=== PATIENT | female | born 1955 | race Caucasian/White ===

== ENCOUNTER → 2020-03-27 07:29 | Outpatient (CLI) | payer MEDICARE, SELFPAY ==
--- NOTE | ~2020-03-27 | MR_ITS ---
EXAMINATION: MR lumbar spine wo con EXAM DATE: 03/27/2020 08:34 INDICATION: Chronic low back pain, right-sided worse. TECHNIQUE: Multi-sequential, multiplanar MR images of the lumbar spine were obtained without contrast . Sagittal T1, T2, T2 fat saturation images. Axial T2 weighted images. Comparison is made to prior examination from 03/03/2018. FINDINGS: There is moderate to severe disc disease L2-3, L3-4 and L5-S1, mild to moderate at L1-2 and L4-5. Interval development of mild compression fractures at the L3-4 endplates, and the left, concav e side of patient's moderate dextroscoliosis. Given the edema, these appear to be acute or subacute. There is 3 mm retrolisthesis L2 on L3, 2 mm retrolisthesis L3 on L4. The conus medullaris terminates at the T12-L1 level and has normal signal intensity and morphology. There is horizontally oriented p artially imaged left kidney. There are 2 fluid signal intensity splenic regions, larger measuring 1.8 cm most likely benign given suspect presence of fluid. Level by level evaluation: T11-12: There is moderate-sized central disc protrusion with both cephalad and inferior migration. Facet arthropathy: Mild. Neural foraminal stenosis: No stenosis. Central canal stenosis: Mild to moderate. T12-L1: There is a mild diffuse disc bulge. Superimposed tiny central protrusion. Facet arthropathy: Mild. Neural foraminal stenosis: No stenosis. Central canal stenosis: No stenosis. L1-L2: There is a mild to moderate diffuse disc bulge. Facet arthropathy: Mild. Neural foraminal stenosis: Minimal left. Central canal stenosis: Minimal. L2-L3: There is a mild to moderate diffuse disc bulge, asymmetric to the left Facet arthropathy: Mild. Neural foraminal stenosis: Mild to moderate left, minimal right. Central canal stenosis: Mild. L3-L4: There is a moderate diffuse disc bulge. Facet arthropathy: Mild to moderate. Neural foraminal stenosis: Moderate left, mild to moderate right. Central canal stenosis: Mild to moderate. L4-L5: There is a mild diffuse disc bulge asymmetric to the right. Facet arthropathy: Mild. Neural foraminal stenosis: Moderate to severe right. Central canal stenosis: Mild. L5-S1: There is a mild to moderate diffuse disc bulge. Facet arthropathy: Mild. Neural foraminal stenosis: Moderate to severe right, moderate left. Central canal stenosis: Mild. Compared to 2018, the L3-4 compression fractures are new, and there has been progression in the disc disease particularly at this level. IMPRESSION: 1. Moderate lumbar dextroscoliosis with mild L3-4 compression fractures along the concave left side of these endplates that could be acute or subacute given edema. 2. Multilevel advanced lumbar spondylosis as detailed above. Reviewed, dictated and finalized at location A.
== END ==
PROVIDERS: PCP Internal Medicine; Visit Provider Nurse Practitioner Family
DX: M54.5 Low back pain (principal); M48.56XA Collapsed vertebra, not elsewhere classified, lumbar region, initial encounter for fracture; M41.9 Scoliosis, unspecified; M47.816 Spondylosis without myelopathy or radiculopathy, lumbar region
CPT/HCPCS: 72148

== ENCOUNTER 2020-06-16 01:29 | Outpatient (CLI) | payer MEDICARE, SELFPAY ==
[2020-06-16 18:31] LABS: SARS-CoV-2 RNA PCR Negative
== END 2020-06-16 01:30 | disposition home or self-care (01) ==
LOC: ANHCOVIDDT 01:29
PROVIDERS: PCP Internal Medicine; Visit Provider Internal Medicine Gastroenterology
DX: Z01.812 Encounter for preprocedural laboratory examination (principal); Z20.828 Contact with and (suspected) exposure to other viral communicable diseases
CPT/HCPCS: 87635; C9803; U0003

== ENCOUNTER 2020-06-19 00:36 | Day surgery (SDC) | payer MEDICARE, SELFPAY ==
[2020-06-19 10:23] VITALS: BP 132/67; PULSE 76; RESP 18; TEMP 36.8; O2SAT 98
[2020-06-19] MEDS: LACTATED RINGERS 1,000 ML 150 ML IV CONT (10:35)
--- NOTE | 2020-06-19 10:41 | WPDANESEPPF ---
Anes - Initial Pre Proc Eval Procedure: Operation Date: 06/19/20 11:30 Proposed Procedures p Esophagogastroduodenoscopy - Mukund Stovall MD Date/Time: 06/19/20 10:41 Surgeon: Mukund Stovall MD Pre Op Diagnosis: GERD, Dysphagia Patient Data Age: 64 Gender: F Height: Weight: 71 kg Last Vital Signs Temp 98.2 F 06/19/20 10:23 Pulse 76 06/19/20 10:23 Resp 18 06/19/20 10:23 BP 132/67 06/19/20 10:23 Pulse Ox 98 06/19/20 10:23 Allergies Allergy/AdvReac Type Severity Reaction Status Date / Time No Known Allergies Allergy Verified 06/19/20 10:07 Home Medications Medication Instructions Recorded Confirmed Type buspirone 10 mg PO DAILY 07/08/19 06/08/20 History ergocalciferol (vitamin D2) 1,250 mcg PO WEEKLY 07/08/19 06/08/20 History gabapentin 600 mg PO BID 07/08/19 06/08/20 History hydrocodone-acetaminophen 1 tablet PO BID PRN 07/08/19 06/08/20 History meloxicam 15 mg PO DAILY 07/08/19 06/08/20 History metoprolol succinate 100 mg PO DAILY 07/08/19 06/08/20 History omeprazole 40 mg PO DAILY 07/08/19 06/08/20 History amlodipine 10 mg PO DAILY 06/08/20 06/08/20 History Patient hx anesthesia problems: none Family hx anesthesia problems: none [facility] Past Medical History Medical History (Updated 05/21/20 @ 13:04 by Mukund Stovall MD) Anxiety Family history of colon cancer GERD (gastroesophageal reflux disease) HTN (hypertension) Odynophagia Overweight Social History Social History Smoking status: Former smoker Tobacco type: cigarettes Alcohol intake: current Substance use: never Substance use type: unknown Living arrangements: with family Anes - Eval Final PreProcedure Day of Procedure 06/19/20 10:41 Patient weight: overweight Heart: regular rate and rhythm Lungs: clear to auscultation Airway: Mallampati scale class II Neurological: alert and oriented Last oral intake: >/= 8 hours ASA classification: III Emergent: no Anesthetic plan: proceed Anesthesia type and monitoring: general GIVS and standard monitoring Informed Consent: The patient's anesthetic plan and its attendant risks and benefits were discussed with the patient/family/POA. Questions were solicited and answers provided to the satisfaction of the patient/family/POA.
[2020-06-19 11:21] VITALS: BP 113/47; PULSE 72; RESP 14; O2SAT 99
[2020-06-19 11:30] VITALS: BP 115/50; PULSE 67; RESP 16; O2SAT 99
[2020-06-19 11:41] VITALS: BP 124/64; PULSE 69; RESP 15; O2SAT 99
--- NOTE | 2020-06-19 12:12 | WPDHPUPDATE1 ---
History and Physical Update Update Date/Time: 06/19/20 12:12 History and Physical has been reviewed, including an updated exam of the patient. There are NO changes in the patient's condition. Risks, benefits, and alternatives have been discussed and questions answered. Patient agrees to proceed with procedure.
--- NOTE | 2020-06-19 12:52 | PM.PROC ---
Procedure Note - Detailed Date of procedure: 06/19/20 Pre-op diagnosis: GERD, Dysphagia Surgeon: Mukund Stovall MD Indications: GERD (K21.9) Description of Procedure: Informed consent was obtained with the risks, benefits, and alternatives to GI endoscopy and sedation explained, including but not limited to: infection, bleeding, aspiration, perforation, adverse medication reaction, missed diagnosis, and missed lesions. The patient verbalized understanding and signed the informed consent form to proceed with the GI endoscopy and sedation.No contraindications were noted on physical exam.Patient re-examined and no interval changes noted from preoperative history and physical. After the patient was rolled into the procedure room, two methods of identification were used to identify the patient and the procedure to be performed prior to the procedure. Immediately prior to sedation for endoscopy, the patient's ASA Classification was Class III: severe systemic disease, but not incapacitating. Anesthesia was administered by anesthesia service. The patient was placed in the left lateral decubitus position.The instrument was inserted into the mouth and then advanced to the second part of the duodenum.The patient tolerated the procedure well.The oxygen saturation and skin color were normal. Upon discharge from the endoscopy suite, the patient will be recovered per established procedures and protocols. Findings: normal esophagus but obtained random biopsies of lower esophagus to assess for nerd, eoe, etc. No esophagitis, no strictures. Z-line at 38 cm from incisors. Normal stomach, no obvious gastritis, no erosions. Random biopsies of stomach obtained. Normal duodenum. Recommendations unremarkable EGD but pending biopsies ok to resume meds and diet follow-up office as needed
== END 2020-06-19 11:55 | disposition home or self-care (01) ==
PROVIDERS: PCP Internal Medicine; Visit Provider Internal Medicine Gastroenterology
PROC: 0DJ08ZZ Inspection of Upper Intestinal Tract, Via Natural or Artificial Opening Endoscopic (ICD-10-PCS; CPT 43235; principal; 2020-06-19 11:30)
DX: K21.00 Gastro-esophageal reflux disease with esophagitis, without bleeding (principal); R13.10 Dysphagia, unspecified; K29.50 Unspecified chronic gastritis without bleeding; B96.81 Helicobacter pylori [H. pylori] as the cause of diseases classified elsewhere; I10 Essential (primary) hypertension; F41.9 Anxiety disorder, unspecified; Z80.0 Family history of malignant neoplasm of digestive organs; Z87.891 Personal history of nicotine dependence
CPT/HCPCS: 43239; 88305; 88342; J2001; J2704; J7120

== ENCOUNTER → 2020-06-25 10:02 | Outpatient (CLI) | payer MEDICARE, SELFPAY ==
--- NOTE | ~2020-06-25 | XR_ITS ---
EXAMINATION: SCOLIOSIS DATE: 06/25/2020 11:15 INDICATION: Bilateral leg pain TECHNIQUE: Standing AP and lateral views of the thoracolumbar spine FINDINGS: There are 12 rib bearing thoracic vertebral bodies and 5 non-rib bearing lumbar type verteb ral bodies. There is no listhesis, compression deformity or vertebral body anomaly. There are 26 deg itz of thoracic levocurvature measured from T6 through T11. There are 28 degrees of thoracolumbar de xtrocurvature measured from T12 through L4. There is mild spondylosis of the midthoracic spine. Mild cervical spondylosis is also noted. There is severe lumbar spondylosis. IMPRESSION: 1. Thoracic and thoracolumbar scoliosis as detailed above. 2. No vertebral body anomalies. Reviewed, dictated and finalized at location A. TY BOND AGENT
--- NOTE | ~2020-06-25 | XR_ITS ---
XR lumbar spine 2-3V DATE: 06/25/2020 11:16 INDICATION: Bilateral leg pain TECHNIQUE: Flexion and extension lateral views of the lumbar spine COMPARISON: AP and lateral standing views of the lumbar spine on 06/25/2020 FINDINGS: Prominent rotatory dextroscoliosis of the lower thoracic and lumbar spine as demonstrated o n the standing AP view of 06/25/2020. There is severe degenerative disc disease throughout the lumbar and lumbosacral spine. There is diffuse osteopenia otherwise. No spondylolisthesis or instability is evident on flexion or extension. IMPRESSION: Prominent rotatory dextroscoliosis and severe degenerative disc disease; no instability o n flexion or extension is evident Reviewed, dictated and finalized at location A. TROPLATER APPRENTICE IMPRESSION: Prominent rotatory dextroscoliosis and severe degenerative disc dis ease; no instability on flexion or extension is evident
== END ==
PROVIDERS: Visit Provider Neurological Surgery
DX: M79.604 Pain in right leg (principal); M79.605 Pain in left leg; M47.815 Spondylosis without myelopathy or radiculopathy, thoracolumbar region
CPT/HCPCS: 72082; 72100

== ENCOUNTER 2020-07-18 10:01 | Outpatient (CLI) | payer MEDICARE, SELFPAY ==
--- NOTE | ~2020-07-18 | DEXA_ITS ---
Bone Density Report Name: Keiko Noonan Age: 64 Sex: Female Ethnicity: White Date of : 1955 Indication: postmenopausal; height loss; hysterectomy; Referring Provider: GELACIO NAIR Study: Bone densitometry was performed. Exam Date: July 18, 2020 Accession number: [id number] Bone Density: Region BMD T-score Z-score Classification AP Spine (L1, L2) 0.849 -1.2 0.6 Osteopenia Femoral Neck (Left) 0.641 -1.9 -0.3 Osteopenia Total Hip (Left) 0.781 -1.3 0.0 Osteopenia Total Hip Bilateral Avg 0.763 -1.5 -0.2 Osteopenia Femoral Neck (Right) 0.627 -2.0 -0.4 Osteopenia Total Hip (Right) 0.744 -1.6 -0.3 Osteopenia World Health Organization criteria for BMD impression classify patients as: Normal (T-score at or above -1.0), Osteopenia (T-score between -1.0 and -2.5), or Osteoporosis (T-score at or below -2.5). 10-year Fracture Risk(1): Major Osteoporotic Fracture 11% Hip Fracture 1.6% Reported Risk Factors: [place] (), Neck BMD=0.627, BMI=28.2 (1) FRAX(R) Version 3.08. Fracture probability calculated for an untreated patient. Fracture probability may be lower if the patient has received treatment. Clinical Information Provided by Patient: Has used the following medications: Vitamin D Has the following medical conditions: Hysterectomy Patient maximum height was 64 Menopause Age: 48 Drinks caffeinated beverages Onset of menses at age 9 Number of children 3 Impression: The patient has low bone mass, based on the Right Femoral Neck T-score. The patient has an estimated ten-year risk of hip fracture of 1.6% and an estimated ten-year risk of major fracture of 11%, based on the WHO FRAX algorithm. Discussion: BONE DENSITY IS LOW AT ONE OR MORE SKELETAL SITES. This patient's lowest T-score is low at one or more skeletal sites. It meets the World Health Organization's (WHO) criteria for ?low bone mass? (T-score between -1.0 and -2.5). The patient's 10-year risk of fracture as calculated by FRAX is less than the threshold where pharmacological therapy is recommended by the National Osteoporosis Foundation (NOF). However, all treatment decisions require clinical judgment and consideration of individual patient factors, including patient preferences, comorbidities, previous drug use, risk factors not captured in the FRAX model (e.g., frailty, falls, vitamin D deficiency, increased bone turnover, interval significant decline in bone density) and possible under or overestimation of fracture risk by FRAX. The patient should follow a healthful lifestyle (good nutrition with adequate calcium and vitamin D, and appropriate weight-bearing exercise). Follow-Up: Consider repeating this study in 2 to 3 years to reassess this patient's status, or sooner if there is some new clinical indication. Reported
== END 2020-07-18 10:02 | disposition home or self-care (01) ==
LOC: ANHIMG 10:02
PROVIDERS: Visit Provider Obstetrics & Gynecology Gynecology
DX: Z78.0 Asymptomatic menopausal state (principal); M85.89 Other specified disorders of bone density and structure, multiple sites
CPT/HCPCS: 77080

== ENCOUNTER 2020-11-06 10:06 | Outpatient (CLI) | payer MEDICARE, SELFPAY ==
[2020-11-09 04:46] LABS: H pylori Ag Stool Detected (Not Detected)
== END 2020-11-06 10:07 | disposition home or self-care (01) ==
PROVIDERS: PCP Internal Medicine; Visit Provider Nurse Practitioner Family
DX: A04.8 Other specified bacterial intestinal infections (principal)
CPT/HCPCS: 87338

== ENCOUNTER 2021-01-22 11:19 | Outpatient (CLI) | payer MEDICARE, SELFPAY | END 2021-01-22 11:20 | disposition home or self-care (01) | PROVIDERS: PCP Internal Medicine; Visit Provider Nurse Practitioner Family | DX: A04.8 Other specified bacterial intestinal infections (principal) | CPT/HCPCS: 87338 ==

== ENCOUNTER 2021-01-29 11:17 | Outpatient (CLI) | payer MEDICARE, SELFPAY ==
[2021-02-02 22:23] LABS: H pylori Ag Stool Not Detected (Not Detected)
== END 2021-01-29 11:18 | disposition home or self-care (01) ==
LOC: ANHLAB 11:21
PROVIDERS: PCP Internal Medicine; Visit Provider Nurse Practitioner Family
DX: B99.8 Other infectious disease (principal)
CPT/HCPCS: 87338

== ENCOUNTER 2021-08-27 00:43 | Day surgery (SDC) | payer MEDICARE, SELFPAY ==
[2021-07-22 14:41] VITALS: BMI 27.3
[2021-08-20 15:02] VITALS: BMI 27.3
[2021-08-27 06:40] VITALS: BP 121/69; PULSE 113; RESP 18; TEMP 36.6; O2SAT 99
[2021-08-27] MEDS: LACTATED RINGERS 1,000 ML 150 ML IV CONT (07:10)
--- NOTE | 2021-08-27 07:30 | PM.HPGS ---
History of Present Illness History of Present Illness Consent: Risks, benefits, and alternatives have been discussed and questions answered. Patient agrees to proceed with procedure. Chief complaint: family hx of colon ca, incontinence of feces Narrative: Keiko Noonan is a 66 year old female with family history of colon cancer in father and grandfather. Last colonoscopy 2019. Review of Systems Constitutional: Constitutional: Denies headache(s) and Denies weakness Eyes: Eyes: Denies blurry vision ENT: Reports Normal hearing present, Denies headache(s) and Denies neck pain Cardiovascular: Cardiovascular: Denies chest pain and Denies dyspnea Respiratory: Respiratory: Denies dyspnea Gastrointestinal: Gastrointestinal: Reports no additional gastrointestinal complaints Genitourinary: Genitourinary: Denies dysuria Musculoskeletal: Musculoskeletal: Denies neck pain Integumentary/Breasts: Skin/Breast: Denies dry skin Neurologic: Reports Normal hearing present, Denies headache(s) and Denies weakness Psychiatric: Psychiatric: Denies anxiety Endocrine: Endocrine: Denies change in body appearance Hematologic/Lymphatic: Hematologic/Lymphatic: Denies easy bleeding Allergic/Immunologic: Allergic/Immunologic: Denies urticaria PMFSH Past Medical History Medical History Anxiety GERD (gastroesophageal reflux disease) Helicobacter pylori infection HTN (hypertension) Incontinence of feces Odynophagia Overweight Social History Social History Smoking status: Never smoker Tobacco type: cigarettes Alcohol intake: never Substance use: never Substance use type: does not use Living arrangements: with family Spiritual care concerns: No Meds Home Medications and Allergies Home Medications Medication Instructions Recorded Confirmed Type buspirone 10 mg PO DAILY 07/08/19 08/27/21 History ergocalciferol (vitamin D2) 1,250 mcg PO WEEKLY 07/08/19 08/27/21 History gabapentin 600 mg PO BID 07/08/19 08/27/21 History metoprolol succinate 100 mg PO DAILY 07/08/19 08/27/21 History omeprazole 40 mg PO DAILY 07/08/19 08/27/21 History amlodipine 10 mg PO DAILY 06/08/20 08/27/21 History Allergies Allergy/AdvReac Type Severity Reaction Status Date / Time No Known Allergies Allergy Verified 07/22/21 14:38 Vital Signs Vital Signs - 24 hr 08/27/21 06:40 Temperature 98 F Pulse Rate 113 H Respiratory Rate 18 Blood Pressure 121/69 Pulse Oximetry 99 Exam Const: General: comfortable and no acute distress HENMT: General nose exam: Normal nares present Eyes: General: appearance normal, both eyes and all related structures Neck: Neck: no JVD Resp: Auscultation: clear to auscultation bilaterally Cardio: Rate: regular rate Rhythm: regular rhythm GI: Inspection: non-distended GI Palp: Yes Soft to palpation Skin: General skin exam: normal color Neuro: General: gait normal Speech: normal speech Extrem: General: normal to inspection Psych: Mental Status: mental status grossly normal Assessment and Plan Assessment and plan (1) Family history of colon cancer: Code(s): Z80.0 - Family history of malignant neoplasm of digestive organs Status: Acute Assessment and Plan: colonoscopy
--- NOTE | 2021-08-27 07:43 | WPDANESEPPF ---
Anes - Initial Pre Proc Eval Procedure: Operation Date: 08/27/21 08:00 Proposed Procedures p Colonoscopy - Mukund Stovall MD Date/Time: 08/27/21 07:43 Surgeon: Mukund Stovall MD Pre Op Diagnosis: family hx of colon ca, incontinence of feces Patient Data Age: 66 Gender: F Height: 1.57 m Weight: 67 kg Last Vital Signs Temp 98 F 08/27/21 06:40 Pulse 113 H 08/27/21 06:40 Resp 18 08/27/21 06:40 BP 121/69 08/27/21 06:40 Pulse Ox 99 08/27/21 06:40 Allergies Allergy/AdvReac Type Severity Reaction Status Date / Time No Known Allergies Allergy Verified 07/22/21 14:38 Home Medications Medication Instructions Recorded Confirmed Type buspirone 10 mg PO DAILY 07/08/19 08/27/21 History ergocalciferol (vitamin D2) 1,250 mcg PO WEEKLY 07/08/19 08/27/21 History gabapentin 600 mg PO BID 07/08/19 08/27/21 History metoprolol succinate 100 mg PO DAILY 07/08/19 08/27/21 History omeprazole 40 mg PO DAILY 07/08/19 08/27/21 History amlodipine 10 mg PO DAILY 06/08/20 08/27/21 History Patient hx anesthesia problems: none Family hx anesthesia problems: none Results Review: All pre-operative results and documents have been reviewed as part of the pre-operative evaluation. [facility] Past Medical History Medical History Anxiety GERD (gastroesophageal reflux disease) Helicobacter pylori infection HTN (hypertension) Incontinence of feces Odynophagia Overweight Social History Social History Smoking status: Never smoker Tobacco type: cigarettes Alcohol intake: never Substance use: never Substance use type: does not use Living arrangements: with family Spiritual care concerns: No Anes - Eval Final PreProcedure Day of Procedure 08/27/21 07:43 Patient weight: overweight Heart: regular rate and rhythm Lungs: clear to auscultation Airway: Mallampati scale class II Neurological: alert and oriented Last oral intake: >/= 8 hours ASA classification: II Emergent: no Anesthetic plan: proceed Anesthesia type and monitoring: general GIVS and standard monitoring Results Review: All pre-operative results and documents have been reviewed as part of the pre-operative evaluation. Informed Consent: The patient's anesthetic plan and its attendant risks and benefits were discussed with the patient/family/POA. Questions were solicited and answers provided to the satisfaction of the patient/family/POA.
[2021-08-27 07:51] VITALS: BP 92/52; PULSE 73; RESP 21; O2SAT 98
[2021-08-27 08:01] VITALS: BP 102/58; PULSE 75; RESP 25; O2SAT 100
[2021-08-27 08:11] VITALS: BP 112/71; PULSE 71; RESP 18; O2SAT 100
== END 2021-08-27 08:25 | disposition home or self-care (01) ==
PROVIDERS: PCP Internal Medicine; Visit Provider Internal Medicine Gastroenterology
PROC: 0DJD8ZZ Inspection of Lower Intestinal Tract, Via Natural or Artificial Opening Endoscopic (ICD-10-PCS; CPT 45378; principal; 2021-08-27 08:00)
DX: Z12.11 Encounter for screening for malignant neoplasm of colon (principal); Z80.0 Family history of malignant neoplasm of digestive organs; D12.2 Benign neoplasm of ascending colon; K63.5 Polyp of colon; D12.3 Benign neoplasm of transverse colon; R15.9 Full incontinence of feces; F41.9 Anxiety disorder, unspecified; K21.9 Gastro-esophageal reflux disease without esophagitis; A04.8 Other specified bacterial intestinal infections; I10 Essential (primary) hypertension
CPT/HCPCS: 45385; 88305; J2704; J7120

== ENCOUNTER → 2022-07-02 15:11 | Outpatient (CLI) | payer MEDICARE, SELFPAY ==
--- NOTE | ~2022-07-02 | CT_ITS ---
CT Abdomen and Pelvis with contrast. History: Abdominal pain. Spiral CT of the abdomen and pelvis was performed after the administration of intravenous contrast. 1 00 cc of Omnipaque 350 was administered intravenously without complication. Dose reduction technique was used on this scan by utilizing automated exposure control and iterative reconstruction technique. The dose-length product (DLP) was 479.62 mGy-cm. Findings: Scans through the lung bases demonstrate densely calcified lingular nodule. There is additi onal probable chronic scarring or atelectasis in the lingula. Minimal pericardial fluid noted. The liver, pancreas, gallbladder, adrenals and kidneys are within normal limits. Calcified splenic gr anulomas are present, as well as probable splenic cysts. No evidence of aortic aneurysm. No lymphade nopathy is seen. There is no evidence of bowel obstruction. There is no evidence to suggest acute appendicitis or dive rticulitis. Images through the pelvis were performed. Urinary bladder unremarkable. No pelvic mass seen. Patient is status post hysterectomy. No ascites is seen. Impression: No etiology for acute abdominal pain. Minimal pericardial fluid. Chronic findings of the lingula. Reviewed, dictated and finalized at location [] TURE MACHINE TENDER Impression: No etiology for acute abdominal pain. Minimal pericardial fluid. Chronic findings of the lingula.
[2022-07-02 15:31] LABS: Estimated Glomerular Filt Rate 49
== END ==
PROVIDERS: PCP Internal Medicine; Visit Provider Internal Medicine
DX: R10.9 Unspecified abdominal pain (principal)
CPT/HCPCS: 74177; Q9967

== ENCOUNTER → 2022-08-29 09:39 | Outpatient (CLI) | payer MEDICARE, SELFPAY ==
--- NOTE | ~2022-08-29 | DEXA_ITS ---
Bone Density Report Name: ISATU MCKNIGHT Age: 67 Sex: Female Ethnicity: White Date of : 1955 Indication: postmenopausal; screening for osteoporosis; parental hip fracture; height loss; hysterectomy; Referring Provider: GELACIO NAIR Study: Bone densitometry was performed. Exam Date: August 29, 2022 Accession number: [id number] There is hypertrophic degenerative change of the lumbar spine, which results in higher than expected spine bone mineral density measurements. These spine BMD and T score and Z score measurements are not reflective of the patient's true general bone mineral density. Bone Density: Region BMD T-score Z-score Classification AP Spine (L1, L2) 0.865 -1.0 0.9 Normal Femoral Neck (Left) 0.629 -2.0 -0.2 Osteopenia Total Hip (Left) 0.773 -1.4 0.1 Osteopenia Femoral Neck (Right) 0.647 -1.8 -0.1 Osteopenia Total Hip (Right) 0.768 -1.4 0.0 Osteopenia Total Hip Mean 0.771 -1.4 0.1 Osteopenia World Health Organization criteria for BMD impression classify patients as: Normal (T-score at or above -1.0), Osteopenia (T-score between -1.0 and -2.5), or Osteoporosis (T-score at or below -2.5). 10-year Fracture Risk: FRAX not reported because: Treated for osteoporosis Clinical Information Provided by Patient: Parent has had a hip fracture Is being treated for osteoporosis Has used the following medications: Fosamax (i.e. alendronate), Vitamin D Has the following medical conditions: Hysterectomy Patient maximum height was 64.5 Menopause Age: 35 No regular weight bearing exercise Drinks caffeinated beverages Onset of menses at age 9 Number of children 3 Impression: The patient has low bone mass, based on the Left Femoral Neck T-score. The patient has risk factors, including: parental hip fracture. There is hypertrophic degenerative change of the lumbar spine, which results in higher than expected spine bone mineral density measurements. These spine BMD and T score and Z score measurements are not reflective of the patient's true general bone mineral density. Discussion: It is important to ask patients whether they are taking their medications and to encourage continued and appropriate compliance with their osteoporosis therapies to reduce fracture risk. It is also important to review their risk factors and encourage appropriate calcium and vitamin D intakes, exercise, fall prevention and other lifestyle measures. Follow-Up: Consider a repeat BMD and Vertebral Fracture Assessment (VFA) exam in 2 years or sooner if medically necessary, to reassess this patient's status. Reported by: DIRK on 08/29/2022 10:18:00 AM. Reviewed, dictated and finalized at location AOsavldo [place]
== END ==
PROVIDERS: PCP Internal Medicine; Visit Provider Obstetrics & Gynecology Gynecology
DX: Z78.0 Asymptomatic menopausal state (principal); M85.89 Other specified disorders of bone density and structure, multiple sites
CPT/HCPCS: 77080

== ENCOUNTER 2023-04-01 13:29 | Outpatient (CLI) | payer MEDICARE, SELFPAY ==
--- NOTE | ~2023-04-01 | MR_ITS ---
MR breast BI wo/w con 04/03/2023 08:52 CDT INDICATION: Extremely dense breasts TECHNIQUE: MRI of the breasts perform using standard protocol pre-and post IV contrast with the follo wing sequences: Axial T2 STIR, axial T1, axial vibrant T1 with fat suppression precontrast and multip hasic postcontrast. COMPARISON: Outside mammogram dated 12/21/2017 FINDINGS: There are no abnormalities on the precontrast sequences. There is moderate background paren chymal enhancement. No enhancing lesions following contrast administration. No areas of enhancement meeting threshold criteria on CAD analysis. No evidence of signal abnormalities in the axillary or internal mammary node distributions. LEFT BREAST: No signal abnormalities on precontrast sequences. There is moderate background parenchy mal enhancement. No enhancing lesions following contrast administration. No areas of enhancement m eeting threshold criteria on CAD analysis. No evidence of signal abnormalities in the axillary or i nternal mammary node distributions.] IMPRESSION: 1: Right breast: Negative. No evidence of malignancy. 2: Left breast: Negative. No evidence of malignancy. Recommend follow-up screening bilateral mammogram. BI-RADS CATEGORY 0 - INCOMPLETE STUDY, NEED ADDITIONAL IMAGING EVALUATION. Reviewed, dictated and finalized at location B.
== END 2023-04-01 13:30 | disposition home or self-care (01) ==
PROVIDERS: PCP Internal Medicine; Visit Provider Obstetrics & Gynecology Gynecology
DX: R92.2 Inconclusive mammogram (principal)
CPT/HCPCS: 77049; A9577; C8908

== ENCOUNTER 2023-05-07 09:30 | Outpatient (RCR) | payer MEDICARE, SELFPAY ==
--- NOTE | 2023-02-25 11:41 | OPREHPOC ---
Outpatient Therapy Plan of Care This is a Multidisciplinary Plan of Care that may contain components documented by all disciplines (PT, OT, and ST.) PT Problem 1 PT Problem #1 Knowledge Deficit PT Goal 1 Goal 1. Patient will perform independent HEP Target Visit 5 PT Goal 2 Goal 2. Patient will verbalize understanding of appropriate fluid and fiber intake Target Visit 5 PT Problem 2 PT Problem #2 Impaired Functional ADLs PT Goal 1 Goal 1. Patient will report no more than 1 instance of fecal incontinence in a 2 week span to improve ability to go out in the community Target Visit 5 PT Problem 3 PT Problem #3 Impaired Strength PT Goal 1 Goal 1. Improve pelvic floor strength to 3/5 to decrease incontinence Target Visit 5 PT Goal 2 Goal 2. Improve endurance to 10 seconds to decrease incontinence Target Visit 5
--- NOTE | 2023-02-25 11:41 | PTOPEVAL1 ---
Assessment and note entered by Brook Espinoza DPEdis Evaluation Information Assessment Status Evaluation Subjective Information Pt reports fecal incontinence, does not always realize it's happening. Reports difficulty with certain foods, like salads, will give her diarrhea . The volume of incontinence varies. Has been happening for over a year. Likely occurs 4-5 times in a week. Denies urinary incontinence. Also notices some abdominal pain and has kidney issues. Urinates more than 10 times a day and at least 1 time at night. Denies pain with urination. Can hold urine as long as she needs to. Unsure how often she has a BM due to the incontinence. No pain with BM and denies history of pelvic pain. Pt has had 3 vaginal deliveries, tearing with the first. Partial hysterectomy in her 30's. No other b /b issues. Has been taking a fiber capsule, unsure if it helps. Patient goal: decrease fecal incontinence. Wears 3-4 pads a day. Does not always go out in the community due to her incontinence. Drinks 3 cups of coffee a day and usually 1 soda then several bottles of water. States she is not a big eater and sometimes does not eat until dinner, sometimes may have a pack of peanut butter crackers and an apple in the middle of the day. Reported Pain Level Pain Score 0: Self Report Assessment PT Clinical Summary The patient is presenting to skilled therapy with frequent fecal incontinence. She presents with decreased pelvic floor strength and endurance and overall decreased hip and core strength which are contributing to her fecal incontinence and pad use . She will benefit from skilled therapy to address these impairments, address her overall diet and fluid intake, and reduce incontinence in order to return to prior level of function. Plan of Care Interventions Manual Therapy,Neuro Re-education,Patient/ Caregiver Education,Therapeutic Activities, Therapeutic Exercise PT Services Indicated Yes Treatment Frequency and 1 time a week for 4-5 visits Duration These treatments will address the objective and functional deficits as defined above. The patient will be advanced safely and appropriately in order for the patient to progress towards his/her prior level of function. Additional exercises will be introduced and as well as a comprehensive home exercise program upon discharge, if needed, ?to ensure carryover of functional gains achieved in the clinic. This treatment plan has been reviewed and agreement upon by the patient.
--- NOTE | 2023-04-08 11:15 | OPREHPOC ---
Outpatient Therapy Plan of Care This is a Multidisciplinary Plan of Care that may contain components documented by all disciplines (PT, OT, and ST.) PT Problem 1 PT Problem #1 Knowledge Deficit PT Goal 1 Goal 1. Patient will perform independent HEP Target Visit 5 Progress Partially Met PT Goal 2 Goal 2. Patient will verbalize understanding of appropriate fluid and fiber intake Target Visit 5 Progress Partially Met PT Problem 2 PT Problem #2 Impaired Functional ADLs PT Goal 1 Goal 1. Patient will report no more than 1 instance of fecal incontinence in a 2 week span to improve ability to go out in the community Target Visit 5 Progress Partially Met Comment 1 instance in the last 2 weeks PT Problem 3 PT Problem #3 Impaired Strength PT Goal 1 Goal 1. Improve pelvic floor strength to 3/5 to decrease incontinence Target Visit 5 Progress Partially Met Comment 2/5 PT Goal 2 Goal 2. Improve endurance to 10 seconds to decrease incontinence Target Visit 5 Progress Partially Met Comment 7 seconds
--- NOTE | 2023-04-08 11:16 | PTOPPROG ---
Assessment and note entered by Brook Espinoza, DPEdis Evaluation Information Assessment Status Progress Subjective Information Pt reports she has been doing better, only had 1 day of fecal incontinence in the last week. Also reports her stool consistency has improved and has been compliant with HEP. Has not been eating salads as that has seemed to be a trigger. Assessment PT Clinical Summary The patient has made progress in therapy and reports only 1 instance of fecal incontinence in the last week. She also demonstrates improved core strength and improved pelvic floor strength and endurance. She will benefit from continued therapy to further address strength and endurance in order to reduce incontinence and return to prior level of function. Plan of Care Interventions Manual Therapy,Neuro Re-education,Patient/ Caregiver Education,Therapeutic Activities, Therapeutic Exercise PT Services Indicated Yes Treatment Frequency and 1 visit every other week x 2 visits Duration These treatments will address the objective and functional deficits as defined above. The patient will be advanced safely and appropriately in order for the patient to progress towards his/her prior level of function. Additional exercises will be introduced and as well as a comprehensive home exercise program upon discharge, if needed, ?to ensure carryover of functional gains achieved in the clinic. This treatment plan has been reviewed and agreement upon by the patient.
--- NOTE | 2023-05-07 09:58 | OPREHPOC ---
Outpatient Therapy Plan of Care This is a Multidisciplinary Plan of Care that may contain components documented by all disciplines (PT, OT, and ST.) PT Problem 1 PT Problem #1 Knowledge Deficit PT Goal 1 Goal 1. Patient will perform independent HEP Target Visit 5 Progress Met PT Goal 2 Goal 2. Patient will verbalize understanding of appropriate fluid and fiber intake Target Visit 5 Progress Met PT Problem 2 PT Problem #2 Impaired Functional ADLs PT Goal 1 Goal 1. Patient will report no more than 1 instance of fecal incontinence in a 2 week span to improve ability to go out in the community Target Visit 5 Progress Partially Met Comment 2 in the last week PT Problem 3 PT Problem #3 Impaired Strength PT Goal 1 Goal 1. Improve pelvic floor strength to 3/5 to decrease incontinence Target Visit 5 Progress Partially Met Comment 2/5 PT Goal 2 Goal 2. Improve endurance to 10 seconds to decrease incontinence Target Visit 5 Progress Met
--- NOTE | 2023-05-07 09:59 | PTOPPROG ---
Assessment and note entered by Brook Espinoza DPT Evaluation Information Assessment Status Progress Subjective Information Pt reports she has had fecal incontinence 2 times in the last week. States things were going really well for awhile but then worsensed slightly. Does note the stool consistency has improved. Had an ablation on her back last week and states she has been very busy, trying to do HEP daily but does not always. Returns to referring MD next week. Assessment PT Clinical Summary The patient is resuming therapy after not been seen for 1 month. She reports 2 instances of fecal incontinence in the last week and that stool consistency has improved. She demonstrates improved pelvic floor endurance. Plan to hold therapy at this time and allow patient to work on independent HEP. Will resume therapy if symptoms worsen over the next 1-2 months, otherwise patient will be discharged. Plan of Care Interventions PT Services Indicated No Treatment Frequency and - Duration These treatments will address the objective and functional deficits as defined above. The patient will be advanced safely and appropriately in order for the patient to progress towards his/her prior level of function. Additional exercises will be introduced and as well as a comprehensive home exercise program upon discharge, if needed, ?to ensure carryover of functional gains achieved in the clinic. This treatment plan has been reviewed and agreement upon by the patient.
--- NOTE | 2023-10-16 12:36 | PTOPDC ---
Assessment and note entered by CLARICE VerduzcoT Evaluation Information Assessment Status Discharge - Pt Not Present Subjective Information - Assessment PT Clinical Summary Patient's case has been discharged from therapy. Plan of Care PT Services Indicated No
== END 2023-05-26 11:54 | disposition still patient (30) ==
LOC: ANHGOSHPT 09:30
PROVIDERS: PCP Internal Medicine; Visit Provider Nurse Practitioner Family
DX: K59.02 Outlet dysfunction constipation (principal); R15.9 Full incontinence of feces
CPT/HCPCS: 97112; 97162; 97530

== ENCOUNTER 2024-04-19 08:15 | Outpatient (RCR) | payer MEDICARE, SELFPAY ==
--- NOTE | 2024-03-18 09:23 | OPREHPOC ---
Outpatient Therapy Plan of Care This is a Multidisciplinary Plan of Care that may contain components documented by all disciplines (PT, OT, and ST.) PT Problem 1 PT Problem #1 Knowledge Deficit PT Goal 1 Goal / Goal Update [place] with HEP Target Visit 3 PT Problem 2 PT Problem #2 Pain PT Goal 1 Goal / Goal Update Report no pain greater than 3/10 following 300' of ambulation Target Visit 6 PT Problem 3 PT Problem #3 Impaired Range of Motion PT Goal 1 Goal / Goal Update Improve levi hip abduction to 45 degrees to reduce interior joint restriction to improve mobility for gait and sleeping position comfort Target Visit 6 PT Goal 2 Goal / Goal Update Patient will demonstrate hamstring restriction of less than -25 degrees for reduce posterior chain pull with ADLs PT Problem 4 PT Problem #4 Impaired Strength PT Goal 1 Goal / Goal Update Improve levi hip flexion to 4/5 to improve foot clearance with ADLs Target Visit 6 PT Goal 2 Goal / Goal Update Improve levi hip abduction to 4/5 to improve pelvic stability with gait and ADLs Target Visit 6
--- NOTE | 2024-03-18 09:23 | PTOPEVAL1 ---
Assessment and note entered by Jeffrey Gastelum, PT Evaluation Information Assessment Status Evaluation Diagnosis Pain in Left Hip ICD-10 Condition Codes (PT) Pain in left hip M25.552 Onset December 2023 Subjective Information Reports that she started having pain in her left groin. She is having the most trouble with walking . Reports that she has been told that she needs back surgery as well. She is currently being treated for that and discussing surgical intervention. Unsure if they are related. She has not slept well for a while. She gets pain when rolling over in bed. She is a left side sleeper. She is not activity avoiding but a lot of things are difficult for her right now. Cannot sit for a long time due to her back. Had a hip injection on 02/25/24. Reported Pain Level Pain Score 6: Self Report Assessment PT Clinical Summary Patient presents with signs and symptoms consistent with Hip OA and lumbar stenosis. Patient has limitations in mobility and strength the first of which having an impact on transfers and gait cycle. She will benefit form skilled therapy to address these deficits to improve gross hip mobilization, strengthening, and ADL performance. Plan of Care Interventions Electrical Stimulation,Gait Training,Manual Therapy,Neuro Re-education,Therapeutic Activities, Therapeutic Exercise PT Services Indicated Yes Treatment Frequency and 1-2x/week for 6 visits Duration These treatments will address the objective and functional deficits as defined above. The patient will be advanced safely and appropriately in order for the patient to progress towards his/her prior level of function. Additional exercises will be introduced and as well as a comprehensive home exercise program upon discharge, if needed, ?to ensure carryover of functional gains achieved in the clinic. This treatment plan has been reviewed and agreement upon by the patient.
--- NOTE | 2024-04-19 12:30 | PTOPDC ---
Assessment and note entered by Jeffrey Gastelum, PT Evaluation Information Assessment Status Discharge Diagnosis Pain in Left Hip ICD-10 Condition Codes (PT) Pain in left hip M25.552 Onset December 2023 Subjective Information Reports that she is seeing some progress but not much at this time. She has decided to take some time back from surgery and not have back surgery at this time. Pain is increased with activity still. Feels that it has helped with the back pain to a certain degree but it is still a limiting factor. Feels that she has an understanding of what she needs to be doing exercise trevino and would like to continue at home. Reported Pain Level Pain Score 7: Self Report Assessment PT Clinical Summary Patient continues to show some weakness and loss of ROM of affected hip. Overall she has a good understanding of her HEP and plans to continue on her own. Patient is suitable for discharge to [facility] at this time. Plan of Care PT Services Indicated D/C to [facility]
== END 2024-04-19 13:01 | disposition home or self-care (01) ==
LOC: ANHGOSHPT 08:15
PROVIDERS: PCP Internal Medicine; Visit Provider Orthopaedic Surgery
DX: M25.552 Pain in left hip (principal)
CPT/HCPCS: 97110; 97140; 97161; 97530

== ENCOUNTER 2024-05-04 08:35 | Outpatient (CLI) | payer MEDICARE, SELFPAY ==
--- NOTE | ~2024-05-04 | MR_ITS ---
EXAMINATION: MR pelvis wo con DATE: 05/04/2024 09:21 INDICATION: Left hip pain with multiple pelvic fractures TECHNIQUE: Magnetic resonance imaging (MRI) of the pelvis was performed without intravenous contrast. Sequences included axial T1-weighted FSE, axial T2-weighted FS FSE, coronal T1-weighted FSE, coronal T2-weighted FS FSE, sagittal T1-weighted FSE and sagittal T2-weighted FS FSE. COMPARISON: None. FINDINGS: There is marrow edema associated with insufficiency fractures at the left inferior pubic ramus, super ior pubic ramus and at the left sacral ala. There appears be some callus formation associated with th e inferior pubic ramus fracture as well as some surrounding soft tissue edema consistent with a subac [place] chronicity. Mild lumbar dextroscoliosis with severe spondylosis with low signal intensity Modic t ype III sclerotic endplate changes at the left side of L3-L4. Marrow signal is otherwise normal. No o steonecrosis or pathologic marrow replacing process. Pelvic floor relaxation with portion of the infe rior bladder extending below level of the pubococcygeal line. Visualized portions of bowels are unrem arkable. No free fluid in the pelvis. No pathologically enlarged pelvic or inguinal lymphadenopathy. IMPRESSION: 1. Likely subacute insufficiency fracture of the left superior and inferior pubic rami and left sacra l ala. 2. Mild lumbar dextroscoliosis with severe spondylosis. Reviewed, dictated and finalized at location A. IMPRESSION: 1. Likely subacute insufficiency fracture of the left superior and inferior pub ic rami and left sacral ala. 2. Mild lumbar dextroscoliosis with severe spondylosis.
== END 2024-05-04 08:36 | disposition home or self-care (01) ==
PROVIDERS: PCP Internal Medicine; Visit Provider Orthopaedic Surgery
DX: M41.86 Other forms of scoliosis, lumbar region (principal); M47.816 Spondylosis without myelopathy or radiculopathy, lumbar region
CPT/HCPCS: 72195

== ENCOUNTER 2024-08-26 10:02 | Outpatient (CLI) | payer MEDICARE, SELFPAY ==
--- NOTE | ~2024-08-26 | XR_ITS ---
EXAMINATION: XR cervical spine 4-5V DATE: 08/26/2024 10:26 INDICATION: Cervical radiculopathy. TECHNIQUE: 5 views of cervical spine were obtained. COMPARISON: Cervical spine radiographs 01/18/2018 FINDINGS: There is 6 degrees dextrocurvature of cervical spine. There is 2 mm retrolisthesis of C5 on C6. Vertebral body heights are normal. There is moderately decreased disc height at C4-C5 and severe ly decreased disc height at C5-C6 and C6-C7. There is multilevel uncovertebral joint osteoarthritis, severe bilaterally from C4-C5 through C6-C7. There is multilevel [id number] facet joint osteoar thritis. There is multilevel mild neural foraminal stenosis. The neural foramina are not well profile d on the right. There is mild central canal stenosis at C5-C6. No prevertebral soft tissue swelling. IMPRESSION: 1. Severe cervical spondylosis. Reviewed, dictated and finalized at location A. COMMISSIONER
--- NOTE | ~2024-08-26 | XR_ITS ---
HISTORY: Thoracic radiculopathy COMPARISON: None TECHNIQUE: 3 views of the thoracic spine were performed FINDINGS: No acute compression fracture is present. Bone mineralization is age advanced Significant degenerative disease. Levoscoliotic curvature of the thoracic spine is identified. IMPRESSION: Significant degenerative disease along with levoscoliotic curvature. No acute compression fracture. Diffuse bony demineralization. Reviewed, dictated and finalized at location A. D FOLDER IMPRESSION: Significant degenerative disease along with levoscoliotic curvatur e. No acute compression fracture. Diffuse bony demineralization.
--- NOTE | ~2024-08-26 | XR_ITS ---
HISTORY: Lumbar radiculopathy COMPARISON: 06/25/2020 TECHNIQUE: 3 view lumbar spine. FINDINGS: S shaped curvature of the lower thoracic and lumbar spines. There are 5 non-rib bearing lumbar vertebral bodies. Disc spaces are diffusely narrowed. Vertebral body heights are irregular. Paraspinal soft tissues are unremarkable. Significant degenerative disease with osteophyte formation, disc space narrowing, ankylosis, endplate changes and vacuum phenomena. IMPRESSION: Significant degenerative disease along with S shaped curvature for which MRI is recommended, if the p atient is clinically able. Reviewed, dictated and finalized at location A. EDURAL NURSE IMPRESSION: Significant degenerative disease along with S shaped curvature for which MRI is recommended, if the patient is clinically able.
== END 2024-08-26 10:03 | disposition home or self-care (01) ==
LOC: MICIMG 10:05
PROVIDERS: PCP Internal Medicine
DX: M51.34 Other intervertebral disc degeneration, thoracic region (principal); M41.84 Other forms of scoliosis, thoracic region; M81.0 Age-related osteoporosis without current pathological fracture
CPT/HCPCS: 72050; 72072; 72100

== ENCOUNTER 2024-09-16 10:37 | Outpatient (CLI) | payer MEDICARE, SELFPAY | END 2024-09-16 10:38 | disposition home or self-care (01) | LOC: MICIMG 10:38 | PROVIDERS: PCP Internal Medicine; Visit Provider Obstetrics & Gynecology Gynecology | DX: Z12.31 Encounter for screening mammogram for malignant neoplasm of breast (principal) | CPT/HCPCS: 77063; 77067 ==

== ENCOUNTER 2024-11-16 00:08 | Day surgery (SDC) | payer MEDICARE, SELFPAY ==
[2024-11-04 10:09] VITALS: BMI 27.4
--- OUTSIDE RECORDS SUMMARY | 2024-11-16 00:11 | XMS_ITS ---
Author Organization [facility] Address [address] [place] [address] Care Team Providers Care Biofuels Product Manager Name Role Phone Mynor Reid Primary Care Provider Kofi Piper Unavailable [phone] Alex Abdi Unavailable Unavailable REASON FOR VISIT cancel appt Encounters Encounter Location Date Provider Diagnosis [facility] [place] [address] [place] [address] 10/18/2024 Kofi Lugo Plan Of Treatment No Information Progress Notes * Alex MCKNIGHTOB: 4 (69 yo F)Acc No.[id number]:10/18/2024 Patient: Keiko WEST :1955 A ge:69 Y S ex:Female Address:[address], [place], [address] * * Date:
--- OUTSIDE RECORDS SUMMARY | 2024-11-16 00:11 | XMS_ITS | Referral Summary ---
Author Organization [facility] Address [address] [place] [address] Care Team Providers Care Fleshing Machine Operator Name Role Phone Mynor Reid MD Primary Care Provider [phone] Allergies No known active allergies Medications gabapentin (NEURONTIN) 600 mg tablet Take 2 tablets by mouth bedtime 0 Active meloxicam (MOBIC) 15 mg tablet Take 15 mg by mouth daily 0 Active amLODIPine (NORVASC) 10 mg tablet Take 1 tablet by mouth daily 0 Active omeprazole (PriLOSEC) 40 mg capsule Take 1 capsule by mouth daily 0 Active busPIRone (BUSPAR) 10 mg tablet Take 1 tablet by mouth daily 0 Active metoprolol XL (TOPROL-XL) 100 mg 24 hr tablet Take 1 tablet by mouth daily 0 Active ergocalciferol (VITAMIN D) 50,000 unit capsule Take 1 capsule by mouth once a week 0 Active alendronate (FOSAMAX) 70 mg tablet Take 70 mg by mouth every 7 days Fridays....Chucky e in the morning with a full glass of water, on an empty stomach, and do not take anything else by mouth or lie down for the next 30 min. 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 Noonan low back pain and scoliosis in the setting osteoporosis with a T- score of -2.0. She is scheduled to see her business division chair doctor onto stated discussed this. If she wishes referral to a bone mineral density Clinic doctor, she will call back and I would be happy to make that referral. She had an EMG that did not show any definite radiculopathy. I would not recommend surgery at this time, but would recommend formal evaluation by a scoliosis surgeon as she would be at high risk for adjacent degeneration requiring surgeries if surgery was to be considered. We will make that referral. Leg pain, bilateral 05/30/2020 Assessment & Plan (05/30/2020 2:20 PM INDUCTION HEATING EQUIPMENT SETTER): Ms. Noonan has bilateral leg pain. She has a component inherent hip disease bilaterally and piriformis syndrome on the right. She has severe foraminal stenosis at L4-5 and L5-S1 on the right and L3-4 on the left in the setting of scoliosis and decreased bone density. Will get any EMG nerve conduction study of her bilateral lower extremities to look for definite signs of nerve root impingement and will get AP and lateral scoliosis films and flexion-extension lumbar spine films to look for instability and to assess her overall scoliosis. She is scheduled to get a DEXA scan at the end of June to quantify her bone density. We will see her in July shortly after this to discuss further options. Social History Tobacco Use Types Packs/Day Years Used Date Smoking Tobacco: Former Cigarettes Q uit: 1989 Smokeless Tobacco: Never Alcohol Use Standard Drinks/Week Comments Yes 0 (1 standard drink = 0.6 oz pur e alcohol) Moderate use PHQ-2 Answer Date Recorded PHQ-2 Total Score (If total score is 3 or more points, staff should administer the PHQ-9) 1 05/30/2020 Personal Safety Answer Date Recorded Getting School Help Needed Not on file 07/09 Comments Unknown Sex and Gender Information Value Date Recorded Sex Assigned at Not on file Legal Sex Female 6:12 PM INDUCTION HEATING EQUIPMENT SETTER Gender Identity Not on file Sexual Orientation Not on file Occupation Industry Job Start Date Job End Date Retired Not on file Not on file Not on file Last Filed Vital Signs Vital Sign Reading Time Taken Comments Blood Pressure 121/88 10/02/2022 12:12 PM CDT Pulse 75 10/02/2022 12:12 PM CDT Temperature - - Respiratory Rate 14 10/02/2022 12:12 PM CDT Oxygen Saturation - - Inhaled Oxygen Concentration - - Weight 68.5 kg (151 lb) 10/02/2021 1:25 PM CDT Height 157.5 cm (5' 2 ) 10/02/2021 1:25 PM CDT Body Mass Index 27.62 10/02/2021 1:25 PM CDT Plan of Treatment Not on file Insurance MEDICARE MEDICARE [employer] MEDICARE Care Teams Fleshing Machine Operator Relationship Specialty Start Date End Date Mynor Reid MD PCP - General Internal Medicine 04/30/20
--- OUTSIDE RECORDS SUMMARY | 2024-11-16 00:11 | XMS_ITS | Clinical Summary ---
Author Organization [facility] Address [address] [address] Care Team Providers Care Utility Operator Name Role Phone Mynor Reid MD Primary Care Provider [phone] Allergies No known active allergies Medications gabapentin [...] 40 mg capsule,delayed release(DR/EC) Take by mouth cushion former before breakfast Active Active Problems Problem Noted Date Diagnosed Date Scoliosis 08/02/2020 Assessment & Plan (08/02/2020 10:48 AM MACHINE FELLER): Ms. Noonan low back pain and scoliosis in the setting osteoporosis with a T- score of -2.0. She is scheduled to see her ob/gyn doctor doctor onto stated discussed this. If she [...] 05/30/2020 Assessment & Plan (05/30/2020 2:20 PM MACHINE FELLER): Ms. Noonan has bilateral leg pain. She [...] shortly after this to discuss further options. Surgical History Surgery Date Site/Laterality Comments TUMOR REMOVAL 07/20/1978 - 07/19/1979 Bilateral Bilateral Breasts - malignant PARTIAL HYSTERECTOMY 07/20/1990 - 07/19/1991 CARPAL TUNNEL RELEASE 07/20/2009 - 07/19/2010 Right Medical History Medical History Date Comments Sinus problem HTN (hypertension) Family History Medical History Relation Name Comments Heart disease Father Hypertension Father Prostate cancer Father Stomach cancer Father Heart disease Mother Hypertension Mother Lung cancer Mother Relation Name Status Comments Father Mother Social History Tobacco Use Types Packs/Day Years [...] on file Legal Sex Female 6:12 PM MACHINE FELLER Gender Identity Not on file Sexual Orientation Not on file Occupation Industry Job Start Date Job End Date Retired Not on file Not on file Not on file Obstetrics History Last Filed Vital Signs Vital Sign Reading [...] 10/02/2021 1:25 PM CDT Plan of Treatment Health Maintenance Due Date Last Done Comments Breast Cancer Screening-Mammogram 1955 Colon Cancer Screening-Colonoscopy 1955 Hepatitis C Screening 1955 Osteoporosis Screening-Bone Density Scan 1953 DTaP/Tdap/Td Vaccine (1 - Tdap) 1964 Hepatitis B Screening 1971 Zoster Vaccine (1 of 2) 2003 Well Visit 65+ 2018 Pneumococcal vaccine 65+ (2 of 2 - PPSV23) 04/06/2020 04/06/2019 Depression Screening 05/30/2021 05/30/2020, 05/30/20 20 Fall Risk Assessment 05/30/2021 05/30/2020 Influenza Vaccine (Season Ended) 2025 04/06/2019, 05/09/2018, 05/04/2017, Additional history exists Insurance [employer] MEDICARE Care Teams Utility Operator Relationship Specialty Start Date End Date Mynor Reid MD PCP - General Internal Medicine 04/30/20
--- OUTSIDE RECORDS SUMMARY | 2024-11-16 00:11 | XMS_ITS | Continuity of Care Document ---
Author Organization [facility] Address [address] [place] [address] utive [facility] [address] [place] [address] Phone Care Team Providers Care Salon Assistant Name Role Phone [facility] [employer] Unavailable Unavail able Akbar Murphy Unavailable Unavailable Advance Directives Directive Yes / No Effective Date File Name No Information Encounters Encounter Description Practice Location Reason(s) For Visit Diagnoses Date Provider Providers Copied on Encounter [facility], [address] [facility], [place], [place], [id number], [place] tel:[phone] [facility] [place] No Information [facility] [employer] [address] [facility], [address], [place], [place], [id number] , [place]. [phone] Referring Provider: Lucio Desai, [address] [place] [address] [address], [place], [address]. tel:[phone] sulting Provider: Akbar Murphy, [address] [place] [address], [place], [address]. tel:[phone] Family History Family Member Type Diagnosis Age At Onset No Information Payers Payer name Insurance type Covered constitution party ID Authoriza tion(s) No Information Social History Type Description Quantity Date Captured Comments Sex Female Smoking Status No Information Chief Complaint And Reason For Visit No Information Reason For Referral Reason For Referral No Information History Of Present Illness Encounter Date Complaint History Of Prese nt Illness No Information Functional Status Date Functional Assessmen t No Information Instructions Date Instruction Additional Infor mation No Information Assessments Type Assessment Date No Information Patient Care Teams Name Effective Dates (start - stop) Status Members No Information
--- OUTSIDE RECORDS SUMMARY | 2024-11-16 00:11 | XMS_ITS | Patient Health Record ---
Author Organization [facility] Address [address] [place] [address] Care Team Providers Care Labor Economics Professor Name Role Phone Mynor Reid Primary Care Provider UnavailKofi Aponte Unavailable [phone] Alex Abdi Unavailable Unavailable Allergies No Known Allergies Reason For Referral Reason (B) L3-4 rf Diagnosis 1 Spondylosis without myelopathy or radiculopathy, lumbar region (M47.816) Referred Organization [facility] Referred Provider Kofi Lugo Referred Address [address],[place], [place],[address], Referred Provider Specialty Pain Medicin e Procedure 1 DEST. LUMSCRL RF KANE ROLYTIC ([id number]) General Notes approved through dot core, scanned in chart, Radha Kline 05/18/2024 01:58:53 PM > Referral Priority Routine Medications Medication SIG (Take, Route, Frequency, Duration) Notes Start Date End Date Status Amlodipine & Diet Manage Prod Active Alendronate Sodium A ctive Gabapentin Active Hydrocodone Bitart (Antituss) Not-Taking Metoprolol Succinate Active Omeprazole Active busPIRone HCl Not-Ta oscar Amantadine HCl Not-T aking Social History Tobacco Use: Social History Observation Description Date Details (start date - stop date) Never Smoker NA - NA Tobacco Use/Smoking Question Answer Notes Are you a nonsmoker Alcohol Screen (Audit-C) Question Answer Notes Did you have a drink contain ing alcohol in the past year? Yes How often did you have a dri nk containing alcohol in the past year? 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 confirmed Problem Essential hypertension (66316538) Essential (primary) hypertension (I10) Active confirmed Problem Lumbosacral spondylosis without myelopathy (21176709) Spondylosis without myelopathy or radiculopathy, lumbar region (M47.816) Active confirmed Vital Signs Heart Rate 62 /min 06/01/2024 Temperature 97.4 degrees Fahrenheit 06/01/2024 Respiratory Rate 16 /min 06/01/2024 Blood pressure diastolic 59 mm Hg 06/01/2024 Height 62 in 06/01/2024 Blood pressure systolic 113 mm Hg 06/01/2024 Weight 153 lbs 06/01/2024 BMI 27.98 kg/m2 06/01/2024 Encounters Encounter Location Date Provider Diagnosis [facility] [address] [address] 05/18/2024 Kofi Lugo Spondylosis without myelopathy or radiculopathy, lumbar region M47.816 and Fear of injections and transfusions F40.231 [facility] [address] [address] 06/01/2024 Kofi Lugo Spondylosis without myelopathy or radiculopathy, lumbar region M47.816 and Fear of injections and transfusions F40.231 [facility] [address] [address] 10/18/2024 Kofi Lugo [facility] [address] [address] 05/18/2024 Kofi Lugo Assessments Encounter Date Diagnosis (ICD Code) Assessment Notes Treatment Notes Treatment Clinical Notes Section Notes 05/18/2024 Spondylosis without myelopathy or radiculopathy, lumbar region (ICD-10 - M47.816) Patient has lumbar spondylosis without myelopathy. Will do a bilateral L3-L4 lumbar medial branch radiofrequency denervation. Patient tolerated very well will will make sure she is approved for an L3-L4 t medial branch radiofrequency denervation 06/01/2024 Spondylosis without myelopathy or radiculopathy, lumbar region (ICD-10 - M47.816) Bilateral L3 and L4 lumbar medial branch radiofrequency denervation. The last time she had 1 done was well over 6 months ago for the entire time states that she has had greater than 50% relief of her pain. She is going to return for clinic we are going to call with any question concerns j. She is going to return in 6 to 12 months for reevaluation reexamination. 06/01/2024 Fear of injections and transfusions (ICD-10 - F40.231) 05/18/2024 Fear of injections and transfusions (ICD-10 - F40.231) Plan Of Treatment No Information Insurance Providers Payer Name Payer Address Payer Phone Subscriber Number Group Number Insured Name Patient Relationship to Insured Coverage Start Date Coverage End Date AET[employer] [address] [place], [place] [phone] [id number] Keiko Noonan Self - patient is the insured Medical (General) History Medical History History ICD Code high blood pressure osteoarthrities Surgical History Surgery Date(Month/Year) breast biopsy 1978 partial hysterectomy 1990 carpel tunnel right
--- OUTSIDE RECORDS SUMMARY | 2024-11-16 00:11 | XMS_ITS | CONTINUITY OF CARE DOCUMENT ---
Author Name angie adams Address Unknown Organization [facility] Address [address] [place] [address] Phone [phone] Care Team Providers Care Business Developer Name Role Phone Kunal CAMARGO, Carmita Unavailable DORON LEAHY MD Unavailable [phone] DORON LEAHY MD Unavailable [phone] PROBLEMS Condition Status Date Provider Notes Insomnia active Fabienne Cottrell Acute upper respiratory infe ctions of unspecified site active Fabienne Cottrell Chest pain active Kajal Mika Thoracic or lumbosacral neur itis or radiculitis, unspecified active DORON LEAHY MD Brachial neuritis or radiculitis NOS active Fabienne Cottrell ENCOUNTERS Date Type Provider Location Encounter Diag nosis - In-person encounter Office Visit D[facility]ON [facility]AH[facility] In-person encounter Office Visit DORON LEAHY MD [facility] - In-person encounter Office Visit DORON LEAHY MD [facility] - In-person encounter Office Visit DORON LEAHY MD [facility] - In-person encounter Office Visit DORON LEAHY MD [facility] - In-person encounter Office Visit DORON LEAHY MD [facility] - In-person encounter Office Visit DORON LEAHY MD [facility] - In-person encounter Office Visit DORON LEAHY MD [facility] - In-person encounter Office Visit DORON LEAHY MD [facility] - In-person encounter Office Visit DORON LEAHY MD [facility] - In-person encounter Office Visit DORON LEAHY MD [facility] - In-person encounter Office Visit DORON LEAHY MD [facility] - In-person encounter Office Visit DORON LEAHY MD [facility] - In-person encounter Office Visit DORON LEAHY MD [facility] - In-person encounter Office Visit DORON LEAHY MD [facility] - In-person encounter Office Visit DORON LEAHY MD [facility] - In-person encounter Office Visit DORON LEAHY MD [facility] - In-person encounter Office Visit DORON LEAHY MD [facility] - In-person encounter Office Visit DORON LEAHY MD [facility] - In-person encounter Office Visit DORON LEAHY MD [facility] - In-person encounter Office Visit DORON LEAHY MD [facility] - In-person encounter Office Visit DORON LEAHY [facility] - In-person encounter Office Visit DORON LEAHY [facility] - In-person encounter Office Visit DORON LEAHY MD [facility] - In-person encounter Office Visit DORON LEAHY MD [facility] - In-person encounter Office Visit DORON LEAHY MD [facility] - In-person encounter Office Visit DORON LEAHY MD [facility] - In-person encounter Office Visit DORON LEAHY MD [facility] - In-person encounter Office Visit DORON LEAHY MD [facility] - In-person encounter Office Visit DORON LEAHY MD [facility] - In-person encounter Office Visit DORON LEAHY MD [facility] - In-person encounter Office Visit DORON LEAHY MD [facility] - In-person encounter Office Visit DORON LEAHY MD [facility] - In-person encounter Office Visit DORON LEAHY MD [facility] - In-person encounter Office Visit DORON LEAHY MD [facility] - In-person encounter Office Visit DORON LEAHY MD [facility] - In-person encounter Office Visit DORON LEAHY MD [facility] - In-person encounter Office Visit [facility] - In-person encounter Office Visit DORON LEAHY MD [facility] - In-person encounter Office Visit DORON LEAHY [facility] - In-person encounter Office Visit DORON LEAHY MD [facility] - In-person encounter Office Visit DORON LEAHY [facility] - In-person encounter Office Visit DORON LEAHY MD [facility] - In-person encounter Office Visit DORON LEAHY MD [facility] - In-person encounter Office Visit DORON LEAHY MD [facility] Thoracic or lumbosacral neuritis or radiculitis, unspecifiedBrachial neuritis or radiculitis NOS - In-person encounter Office Visit Adithya [facility] Office - In-person encounter Office Visit Adithya [facility] Office - In-person encounter Office Visit Adithya [facility] Office - In-person encounter Office Visit [facility] - In-person encounter Office Visit [facility] - [facility] Visit [facility] - In-person encounter Office Visit Ad[facility] - In-person encounter Office Visit Adith[facility] - In-person encounter Office Visit [facility] - In-person encounter Office Visit [facility] Office ALLERGIES Allergy Name Onset Date Reaction Criticality Status OMNICEF Low Criticality active NILO Low Criticality active LEVAQUIN Low Criticality active RESULTS Date Observation Value Provider Reference Range Interpretation Location 2 thyroid stimulating hormone, serum 2.040 ??IU/ML [facility] 0.270 - 4.200 2 very low density lipoproteins 28.4 mg/dL [facility] 5.0 - 40.0 2 LDL/HDL (low-density lipoprotein/high-den sity lipoprotein) ratio 1.7 RATIO [facility] - 2 lipoprotein, beta, serum, point, quantitative, calculated 93.6 (?) [facility] 0.0 - 100.0 2 HDL cholesterol, serum 56.0 mg/dL [facility] 45.0 - 65.0 2 cholesterol, serum 178.0 mg/dL [facility] 0.0 - 200.0 2 triglyceride, serum, fasting 142.0 mg/dL [facility] 0.0 - 150.0 2 anion gap, serum 13.1 [facility] - 2 albumin/globulin ratio, serum 2.8 g/dL [facility] 1.1 - 2.5 High 2 globulin, serum 2.9 [facility] 2.3 - 3.8 2 urea nitrogen/creatinine ratio, serum 18.0 [facility] - 2 Estimated Glomerular Filtration Rate (calc) 59.7 (?) [facility] 59.0 - 2 chloride, serum 100.9 mmol/L [facility] 98.0 - 107.0 2 potassium, serum 4.5 mmol/L [facility] 3.5 - 5.1 2 sodium, serum 143.0 mmol/L [facility] 136.0 - 145.0 2 creatinine, serum 1.0 mg/dL [facility] 0.5 - 1.0 High 2 carbon dioxide, venous blood 29.0 mmol/L [facility] 23.0 - 31.0 2 albumin, serum 4.6 g/dL [facility] 3.5 - 5.2 2 calcium, serum 10.1 mg/dL [facility] 8.6 - 10.2 2 aspartate aminotransferase (SGOT), serum 26.0 1/L [facility] 0.0 - 32.0 2 alkaline phosphatase, serum 74.0 1/L [facility] 40.0 - 130.0 2 alanine aminotransferase (SGPT), serum 15.0 1/L [facility] 0.0 - 33.0 2 protein, total, serum 7.5 g/dL [facility] 6.6 - 8.7 2 bilirubin, serum, total 0.3 mg/dL [facility] 0.0 - 1.2 2 urea nitrogen, blood 18.0 mg/dL [facility] 8.0 - 23.0 2 blood glucose, random 90.0 mg/dL [facility] 74.0 - 99.0 2 red blood cell distribution width, size density 44.0 fL [facility] - 2 immature granulocytes, percentage of total cells, blood 0.2 % [facility] - 2 nucleated red blood cells as percent of blood leukocytes 0.0 % [facility] - 2 red blood cell (erythrocyte) count, per high power field 0.0 10*3/UL [facility] - 2 eosinophils as percent of blood leukocytes 3.2 % [facility] - 2 neutrophils as percent of blood leukocytes 59.0 % [facility] - 2 Absolute Neutrophils 2.8 CELLS/UL [facility] 1.5 - 7.8 2 basophils as percent of blood leukocytes 0.6 % [facility] - 2 Absolute Basophils 0.0 CELLS/UL [facility] 0.0 - 0.2 2 monocytes as percent of blood leukocytes 6.2 % [facility] - 2 Absolute Monocytes 0.3 CELLS/UL [facility] 0.2 - 1.0 2 lymphocytes as percent of blood leukocytes 30.8 % [facility] - 2 Absolute Lymphocytes 1.4 CELLS/UL [facility] 0.9 - 3.9 2 mean platelet volume 10.9 (?) [facility] - 2 platelet count 181.0 THOUSAND/ UL [facility] 100.0 - 400.0 2 mean corpuscular hemoglobin concentration, RBC 30.1 G/DL [facility] 31.0 - 38.0 Low 2 mean corpuscular hemoglobin, RBC 24.9 pg [facility] 25.0 - 35.0 Low 2 mean corpuscular volume, RBC 82.9 fL [facility] 75.0 - 100.0 2 hematocrit, blood 41.2 % [facility] 35.0 - 55.0 2 hemoglobin, blood 12.4 g/dL [facility] 11.5 - 16.5 2 erythrocyte count, whole blood 5.0 MILLION/U L [facility] 3.5 - 5.5 HISTORY OF MEDICATION USE Medication Status Instructions Dates Provider Indications Com ments CLARINEX 5 MG ORAL TABLET active ONE TABLET DAILY DORON LEAHY MD ZOLPIDEM TARTRATE 5 MG ORAL TABLET active ONE TABLET IN THE EVENING NEEDED DORON LEAHY MD HYDROCODONE-ACET AMINOPHEN 5-325 MG ORAL TABLET active ONE TABLET TWICE DAILY NEEDED DORON LEAHY MD INSURANCE PROVIDERS Payer name Policy type / Coverage type Low [place] red green party ID AETNA [facility] Other [id number] TREATMENT PLAN Date Name TSH, 3RD GENERATION W/REFLEX TO FT4 LIPID PANEL COMPREHENSIVE METABO LIC PANEL W/EGFR CBC (INCLUDES DIFF/P LT) HISTORY OF PROCEDURES Procedure Date Procedure Name Provider Procedure Notes S tatus Stress EKG DORON LEAHY MD completed Cardiolite, 2 units DORON LEAHY MD completed SPECT Images Jey Desai MD compl eted
--- OUTSIDE RECORDS SUMMARY | 2024-11-16 00:11 | XMS_ITS | Clinical Summary ---
Author Organization [facility] Address [address], [id number] [place] [address] Care Team Providers Care Taxonomy Teacher Name Role Phone Mynor Reid MD Primary Care Provider [phone] Encounters Date Type Department Care Team Description 11/02/2024 9:01 AM CDT - 11/02/2024 11:59 PM CDT Hospital Encounter [facility] [place] [address] Alex Abdi MD Discharge Disposition: Home or Self Care (Routine Discharge) 11/02/2024 Travel from Last 3 Months Social History Tobacco Use Types Packs/Day Years Used Date Smoking Tobacco: Never Assessed Comments Unknown Sex and Gender Information Value Date Recorded Sex Assigned at Not on file Legal Sex Female 8:49 AM CDT Gender Identity Not on file Sexual Orientation Not on file Plan of Treatment Health Maintenance Due Date Last Done Comments Colorectal Cancer Screening Colonoscopy (10 Years) 1953 Hepatitis C 1971 DTaP, Tdap and Td Vaccines (1 - Tdap) 1972 Mammogram Screening 1993 Zoster Vaccines (1 of 2) 2003 Annual Medicare Wellness Visit 2018 Dexa Scan (General) 2018 COVID-19 Vaccine ( season) 2024 04/13/2023, 05/05/2022, 05/20/2021, Additional history exists RSV Immunization or 60+ Years (1 - 1-dose 75+ series) 2028 Pneumococcal Vaccine: 50+ Years Completed 03/20/2020, 04/06/2019 Meningococcal B Vaccine Aged Out No l onger eligible based on patient's age to complete this topic Meningococcal Vaccine Aged Out No elvia handy eligible based on patient's age to complete this topic RSV Immunizations Under 20 Months Aged Out No longer eligible based on patient's age to complete this topic Procedures Procedure Name Priority Date/Time Associated Diagnosis Comments XR LUMB SP+FLEX+EXT MIN 4V Routine 11/02/2024 9:25 AM CDT Other spondylosis with radiculopathy, lumbar region from Last 3 Months Results * XR LUMB SP+FLEX+EXT MIN 4V (11/02/2024 9:25 AM CDT) Anatomical Region Laterality Modality Spine Radiographic Darling ging 11/09/2024 2:34 PM CDT Impressions 11/09/2024 2:37 PM CDT IMPRESSION: Scoliosis and diffuse degenerative changes. Higher detail would require CT or MRI. Referred By: Interpreted By: Tyler Mcmanus MD, 11/09/2024 2:34 PM Narrative 11/09/2024 2:[address] [address] EXAM: XR LUMB SP+FLEX+EXT MIN 4V DATE: 11/02/2024 Comparison 04/06/2024 INDICATION: Scoliosis and chronic low back pain. TECHNIQUE: 4 views FINDINGS: Dextroscoliosis measures about 22 degrees. Multiple lateral osteophytes. Vertebral bodies are not optimally assessed on the lateral images with the degree of scoliosis and some mild rotation. No height loss is thought to be present. Normal alignment. Multilevel degenerative disc disease with disc height reduction and endplate sclerosis. Multilevel facet hypertrophy and sclerosis. No range of motion demonstrated with extension. Some flexion mobility is predominantly due to rotation at the hips. Procedure Note Tyler Mcmanus MD - 11/09/[address] [address] EXAM: XR LUMB SP+FLEX+EXT MIN 4V DATE: 11/02/2024 Comparison 04/06/2024 INDICATION: Scoliosis and chronic low back pain. TECHNIQUE: 4 views FINDINGS: Dextroscoliosis measures about 22 degrees. Multiple lateralosteophytes. Vertebral bodies are not optimally assessed on the lateralimages with the degree of scoliosis and some mild rotation. No heightloss is thought to be present. Normal alignment. Multilevel degenerativedisc disease with disc height reduction and endplate sclerosis.Multilevel facet hypertrophy and sclerosis. No range of motiondemonstrated with extension. Some flexion mobility is predominantly dueto rotation at the hips. IMPRESSION: Scoliosis and diffuse degenerative changes. Higher detailwould require CT or MRI. Referred By: Interpreted By: Tyler Mcmanus MD, 11/09/2024 2:34 PM Alex Abdi MD GENERAL IMAGING Final R esult from Last 3 Months Insurance AETNA Care Teams Taxonomy Teacher Relationship Specialty Start Date End Date Mynor Reid MD [address] [facility] [address] [place] [address] PCP - General INTERNAL MEDICINE 10/14/23
[2024-11-16 08:39] VITALS: BP 109/65; PULSE 96; RESP 18; TEMP 36.8; O2SAT 99
[2024-11-16] MEDS: LACTATED RINGERS 1,000 ML 150 ML IV CONT (08:49)
--- NOTE | 2024-11-16 09:13 | P.PNAN_ITS ---
Anes - Initial Pre Proc Eval Procedure: Operation Date: 11/16/24 10:00 Proposed Procedures p Screening Colonoscopy - Mukund Stovall MD Date/Time: 11/16/24 09:13 Surgeon: Mukund Stovall MD Pre Op Diagnosis: Screening, Family Hx Patient Data Age: 69 Gender: F Height: 1.57 m Weight: 70.6 kg Last Vital Signs Temp 98.3 F 11/16/24 08:39 Pulse 96 11/16/24 08:39 Resp 18 11/16/24 08:39 BP 109/65 11/16/24 08:39 Pulse Ox 99 11/16/24 08:39 O2 Del Method Room Air 11/16/24 08:39 Allergies Allergy/AdvReac Type Severity Reaction Status Date / Time No Known Allergies Allergy Verified 11/16/24 08:38 Home Medications ?Medication ?Instructions ?Recorded ?Confirmed ?Type ergocalciferol (vitamin D2) 1,250 1,250 mcg PO WEEKLY 07/08/19 11/16/24 History mcg (50,000 unit) capsule gabapentin 600 mg tablet 600 mg PO BID 07/08/19 11/16/24 History metoprolol succinate 100 mg 100 mg PO DAILY 07/08/19 11/16/24 History tablet,extended release 24 hr omeprazole 40 mg capsule,delayed 40 mg PO DAILY 07/08/19 11/16/24 History release amlodipine 10 mg tablet 10 mg PO DAILY 06/08/20 11/16/24 History dicyclomine 10 mg capsule 10 mg PO TID PRN abdominal 02/25/24 11/04/24 History discomfort diazepam 5 mg tablet (Valium) 5 mg PO Q6H PRN anxiety #10 tabs 05/03/24 11/04/24 Rx Patient hx anesthesia problems: none Family hx anesthesia problems: none Results Review: All pre-operative results and documents have been reviewed as part of the pre- operative evaluation. [facility] Past Medical History Medical History Abnormal colonoscopy Anxiety Dyssynergic defecation GERD (gastroesophageal reflux disease) Helicobacter pylori infection HTN (hypertension) Incontinence of feces Odynophagia Overweight Surgical History Surgical History History of partial hysterectomy Family History Family History Father Carcinoma of colon Mother Heart disease Cancer Sibling Social History Social History Smoking status: Never smoker Second hand tobacco smoke exposure: Yes Alcohol intake: never Substance use: never Substance use type: does not use Do You Feel Safe in your Home?: Yes Lack of Transportation: No Lack of Food: Never True Current Housing: I Have Housing Concerned About Future Housing: No Difficulty Paying Gas/Electric Bills: No Difficulty Paying for Meds: No Currently Unemployed: No Education: High School Diploma/GED Difficulty w/ Childcare or Family Care: No Living arrangements: with family Occupation/Education: retired 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 Informed Consent: The patient's anesthetic plan and its attendant risks and benefits were discussed with the patient/family/POA. Questions were solicited and answers provided to the satisfaction of the patient/family/POA.
--- NOTE | 2024-11-16 09:17 | P.HP_ITS ---
History of Present Illness History of Present Illness Consent: Risks, benefits, and alternatives have been discussed and questions answered. Patient agrees to proceed with procedure. Chief complaint: Screening, Family Hx Narrative: Keiko Noonan is a 69 year old female with colon polyp and family history crc, last colonoscopy 2021 Review of Systems Review of Systems: All systems reviewed & are unremarkable except as noted in HPI and below PMFSH Past Medical History Medical History Abnormal colonoscopy Anxiety Dyssynergic defecation GERD (gastroesophageal reflux disease) Helicobacter pylori infection HTN (hypertension) Incontinence of feces Odynophagia Overweight Surgical History Surgical History History of partial hysterectomy Family History Family History Father Carcinoma of colon Mother Heart disease Cancer Sibling Social History Social History Smoking status: Never smoker Second hand tobacco smoke exposure: Yes Alcohol intake: never Substance use: never Substance use type: does not use Do You Feel Safe in your Home?: Yes Lack of Transportation: No Lack of Food: Never True Current Housing: I Have Housing Concerned About Future Housing: No Difficulty Paying Gas/Electric Bills: No Difficulty Paying for Meds: No Currently Unemployed: No Education: High School Diploma/GED Difficulty w/ Childcare or Family Care: No Living arrangements: with family Occupation/Education: retired Additional occupation/education comments: [employer] Gender identity (if verbalized by the patient): Female Spiritual care concerns: No Meds Home Medications and Allergies Home Medications ?Medication ?Instructions ?Recorded ?Confirmed ?Type ergocalciferol (vitamin D2) 1,250 1,250 mcg PO WEEKLY 07/08/19 11/16/24 History mcg (50,000 unit) capsule gabapentin 600 mg tablet 600 mg PO BID 07/08/19 11/16/24 History metoprolol succinate 100 mg 100 mg PO DAILY 07/08/19 11/16/24 History tablet,extended release 24 hr omeprazole 40 mg capsule,delayed 40 mg PO DAILY 07/08/19 11/16/24 History release amlodipine 10 mg tablet 10 mg PO DAILY 06/08/20 11/16/24 History dicyclomine 10 mg capsule 10 mg PO TID PRN abdominal 02/25/24 11/04/24 History discomfort diazepam 5 mg tablet (Valium) 5 mg PO Q6H PRN anxiety #10 tabs 05/03/24 11/04/24 Rx Allergies Allergy/AdvReac Type Severity Reaction Status Date / Time No Known Allergies Allergy Verified 11/16/24 08:38 Vital Signs Vital Signs - 24 hr 11/16/24 08:39 Temperature 98.3 F Pulse Rate 96 Respiratory Rate 18 Blood Pressure 109/65 Pulse Oximetry 99 Oxygen Delivery Room Air Exam Const: General: comfortable and no acute distress HENMT: Face/Nose/Sinus: Normal nares present Eyes: General: appearance normal, both eyes and all related structures Neck: Neck: no JVD Resp: Auscultation: clear to auscultation bilaterally Cardio: Rate: regular rate Rhythm: regular rhythm GI: Inspection: non-distended GI Palp: Yes Soft to palpation Skin: General skin exam: normal color Neuro: General: gait normal Speech: normal speech Extrem: General: normal to inspection Psych: Mental Status: mental status grossly normal Assessment and Plan Assessment and plan (1) Family history of colon cancer: Code(s): Z80.0 - Family history of malignant neoplasm of digestive organs Status: Acute Assessment and Plan: colonoscopy
[2024-11-16 09:32] VITALS: BP 112/51; PULSE 76; RESP 15; O2SAT 99
[2024-11-16 09:42] VITALS: BP 107/53; PULSE 76; RESP 20; O2SAT 99
[2024-11-16 09:52] VITALS: BP 110/55; PULSE 74; RESP 20; O2SAT 99
== END 2024-11-16 09:58 | disposition home or self-care (01) ==
PROVIDERS: PCP Internal Medicine; Referring Provider Internal Medicine Gastroenterology; Visit Provider Internal Medicine Gastroenterology
PROC: 0DJD8ZZ Inspection of Lower Intestinal Tract, Via Natural or Artificial Opening Endoscopic (ICD-10-PCS; CPT 45378; principal; 2024-11-16 10:00)
DX: Z12.11 Encounter for screening for malignant neoplasm of colon (principal); D12.2 Benign neoplasm of ascending colon; I10 Essential (primary) hypertension; K21.9 Gastro-esophageal reflux disease without esophagitis; F41.9 Anxiety disorder, unspecified; R15.9 Full incontinence of feces; K59.02 Outlet dysfunction constipation; Z98.890 Other specified postprocedural states; Z80.0 Family history of malignant neoplasm of digestive organs; Z82.49 Family history of ischemic heart disease and other diseases of the circulatory system
CPT/HCPCS: 45385; 88305; J2704; J7120

== ENCOUNTER 2024-12-14 08:04 | Outpatient (CLI) | payer MEDICARE, SELFPAY ==
--- NOTE | ~2024-12-14 | DEXA_ITS ---
Bone Density Report Name: ISATU MCKNIGHT Age: 69 Sex: Female Ethnicity: White Date of : 1955 Indication: osteopenia; parental hip fracture; height loss; cancer; hysterectomy; Referring Provider: GELACIO NAIR Study: Bone densitometry was performed. Exam Date: December 14, 2024 Accession number: [id number] Bone Density: Region BMD T-score Z-score Classification AP Spine(L2, L3, L4) 1.141 0.6 2.8 Normal Femoral Neck (Left) 0.623 -2.0 -0.2 Osteopenia Total Hip (Left) 0.778 -1.3 0.2 Osteopenia Femoral Neck (Right) 0.633 -1.9 -0.1 Osteopenia Total Hip (Right) 0.734 -1.7 -0.1 Osteopenia Total Hip Mean 0.756 -1.5 0.1 Osteopenia World Health Organization criteria for BMD impression classify patients as: Normal (T-score at or above -1.0), Osteopenia (T-score between -1.0 and -2.5), or Osteoporosis (T-score at or below -2.5). 10-year Fracture Risk(1): Major Osteoporotic Fracture 19% Hip Fracture 6.3% Reported Risk Factors: [place] (), Neck BMD=0.623, BMI=30.2, parental fracture (1) FRAX(R) Version 3.08. Fracture probability calculated for an untreated patient. Fracture probability may be lower if the patient has received treatment. Previous Exams: Region Exam Age BMD T-score BMD Change BMD Change Date g/cm2 vs Baseline vs Previous Total Hip(Left) 12/14/2024 69 0.778 -1.3 -0.003 (-0.3%) -0.003 (-0.3%) 07/18/2020 64 0.781 -1.3 Total Hip(Right) 12/14/2024 69 0.734 -1.7 -0.010 (-1.4%) -0.010 (-1.4%) 07/18/2020 64 0.744 -1.6 *Denotes significance at 95% confidence level, LSC for Total Hip = 0.027 g/cm2 Clinical Information Provided by Patient: Parent has had a hip fracture Has used the following medications: HRT (i.e. estrogen/hormone therapy), Vitamin D Has the following medical conditions: Cancer, Hysterectomy Patient maximum height was 64 Menopause Age: 48 No regular weight bearing exercise Drinks caffeinated beverages Onset of menses at age 10 Number of children 3 Impression: The patient has low bone mass, based on the Left Femoral Neck T-score. The patient has an estimated ten-year risk of hip fracture of 6.3% and an estimated ten-year risk of major fracture of 19%, based on the WHO FRAX algorithm. The patient has risk factors, including: parental hip fracture. No significant bone loss was observed. Discussion: BONE DENSITY IS LOW AT ONE OR MORE SKELETAL SITES. THE PATIENT'S BMD AND CLINICAL RISK FACTORS CONTRIBUTE TO THIS PATIENT'S INCREASED RISK OF FRACTURE. This patient's lowest T-score is low at one or more skeletal sites. It meets the World Health Organization's (WHO) criteria for ?low bone mass? (T-score between -1.0 and -2.5). The patient's 10-year risk of hip fracture as calculated by FRAX exceeds the threshold where pharmacological therapy is recommended by the National Osteoporosis Foundation (NOF). However, all treatment decisions require clinical judgment and consideration of individual patient factors, including patient preferences, comorbidities, previous drug use, risk factors not captured in the FRAX model (e.g., frailty, falls, vitamin D deficiency, increased bone turnover, interval significant decline in bone density) and possible under or overestimation of fracture risk by FRAX. The patient should follow a healthful lifestyle (good nutrition with adequate calcium and vitamin D, and appropriate weight-bearing exercise). Follow-Up: Consider a repeat BMD and Vertebral Fracture Assessment (VFA) exam in 2 years or sooner if medically necessary, to reassess this patient's status. Reported by: JEROME on 12/14/2024 8:46:00 AM. Reviewed, dictated and finalized at location A.
--- OUTSIDE RECORDS SUMMARY | 2024-12-14 08:08 | XMS_ITS | Continuity of Care Document ---
Author Organization [facility] Address [address] [place] [address] utive [facility] [address] [place] [address] Phone Care Team Providers Care Aircrewman Name Role Phone [facility] [employer] Unavailable Unavail able Akbar Murhpy Unavailable Unavailable Advance Directives Directive Yes / No Effective Date File Name No Information Encounters Encounter Description Practice Location Reason(s) For Visit Diagnoses Date Provider Providers Copied on Encounter [facility], [address] [facility] [address], [place], [place], [id number], [place] tel:[phone] SEC [facility] No Information [facility] [employer] [facility] [address], [address], [place], [place], [address] , [place]. [phone] Referring Provider: Lucio Desai, [address] [place] [address] [address], [place], [address]. tel:[phone] sulting Provider: Akbar Murphy, [address] [place] [address], [place], [address]. tel:[phone] Family History Family Member Type Diagnosis Age At Onset No Information Payers Payer name Insurance type Covered democrat ID Authoriza tion(s) No Information Social History [...]
--- OUTSIDE RECORDS SUMMARY | 2024-12-14 08:08 | XMS_ITS | Clinical Summary ---
Author Organization [facility] Address [address] [place] [address] Care Team Providers Care Technical Advisor Name Role Phone Mynor Reid MD Primary Care Provider [phone] Allergies No known active allergies Medications gabapentin [...] 40 mg capsule,delayed release(DR/EC) Take by mouth miter saw operator before breakfast Active Active Problems Problem Noted Date Diagnosed Date Scoliosis 08/02/2020 Assessment & Plan (08/02/2020 10:48 AM APPLICATION DEVELOPMENT PROJECT MANAGER): Ms. Noonan low back pain and scoliosis in the setting osteoporosis with a T- score of -2.0. She is scheduled to see her water operator doctor onto stated discussed this. If she [...] 05/30/2020 Assessment & Plan (05/30/2020 2:20 PM APPLICATION DEVELOPMENT PROJECT MANAGER): Ms. Noonan has bilateral leg pain. She [...] on file Legal Sex Female 6:12 PM APPLICATION DEVELOPMENT PROJECT MANAGER Gender Identity Not on file Sexual Orientation [...] 1:25 PM CDT Height 157.5 cm (5' 2) 10/02/2021 1:25 PM CDT Body Mass Index [...] history exists Insurance AETNA MEDICARE Care Teams Technical Advisor Relationship Specialty Start Date End Date Mynor Reid MD PCP - General Internal Medicine 04/30/20
--- OUTSIDE RECORDS SUMMARY | 2024-12-14 08:08 | XMS_ITS ---
Author Organization [facility] Address [address] [place] [address] Care Team Providers Care Charge Master Analyst Name Role Phone Mynor Reid Primary Care Provider Kofi Piper Unavailable [phone] Alex Abdi Unavailable Unavailable REASON FOR VISIT cancel appt Encounters Encounter Location Date Provider Diagnosis [facility] [address] [facility] [place] [address] 10/18/2024 Kofi Lugo Plan Of Treatment No Information Progress Notes * Alex MCKNIGHTOB: 4 (69 yo F)Acc No.[id number]:10/18/2024 Patient: Keiko WEST :1955 A ge:69 Y S ex:Female Address:[address], [place], [address] * * Date:
--- OUTSIDE RECORDS SUMMARY | 2024-12-14 08:08 | XMS_ITS ---
Author Organization [facility] Address [address] [place] [address] Care Team Providers Care Gravel Wheeler Name Role Phone Mynor Reid Primary Care Provider Kofi Piper Unavailable [phone] Alex Abdi Unavailable Unavailable REASON FOR VISIT BACK PAIN Encounters Encounter Location Date Provider Diagnosis [facility] [address] [address] [facility] [address] [place] [address] 12/07/2024 Kofi Lugo Plan Of Treatment No Information Progress Notes * Alex MCKNIGHTOB: (69 yo F)Acc No.[id number]:12/07/2024 Patient: Keiko WEST Provider: Tamara Lugo MD :1955 A ge:69 Y S ex:Female Date:12/07/2024 Address:[address] [place], [place] [id number] Pcp:Mynor Reid Subjective: * Chief Complaints: * 1 . BACK PAIN. * Medical History: Objective: * Vitals: Assessment: Plan: * Treatment: * * Electronic signature of Brenton Lugo MD on 12/14/2024 at 08:08 AM CDT Sign off status: Pending * Provider: Tamara Lugo MD Date: 12/07/2024 Generated for Shad zaragoza/Александр/Jeffrey on: 12/14/2024 08:08 AM CDT
--- OUTSIDE RECORDS SUMMARY | 2024-12-14 08:09 | XMS_ITS | Referral Summary ---
Author Organization [facility] Address [address] [place] [address] Care Team Providers Care Physician Practice Coordinator Name Role Phone Mynor Reid MD Primary Care Provider [phone] Allergies No known active allergies Medications gabapentin [...] 40 mg capsule,delayed release(DR/EC) Take by mouth dry pan operator before breakfast Active Active Problems Problem Noted Date Diagnosed Date Scoliosis 08/02/2020 Assessment & Plan (08/02/2020 10:48 AM TOWER TECHNICIAN): Ms. Noonan low back pain and scoliosis in the setting osteoporosis with a T- score of -2.0. She is scheduled to see her obstetrics gynecology physician doctor onto stated discussed this. If she [...] 05/30/2020 Assessment & Plan (05/30/2020 2:20 PM TOWER TECHNICIAN): Ms. Noonan has bilateral leg pain. She [...] on file Legal Sex Female 6:12 PM TOWER TECHNICIAN Gender Identity Not on file Sexual Orientation [...] Insurance MEDICARE MEDICARE AETNA MEDICARE Care Teams Physician Practice Coordinator Relationship Specialty Start Date End Date Mynor Reid MD PCP - General Internal Medicine 04/30/20
--- OUTSIDE RECORDS SUMMARY | 2024-12-14 08:09 | XMS_ITS | CONTINUITY OF CARE DOCUMENT ---
Author Name angie adams Address Unknown Organization [facility] Address [address] [place] [address] Phone [phone] Care Team Providers Care Sugar Coating Hand Name Role Phone Kunal CAMARGO, Carmita Unavailable DORON LEAHY MD Unavailable DORON LEAHY MD Unavailable PROBLEMS Condition Status Date Provider Notes Insomnia active Fabienne Cottrell Acute upper respiratory infe ctions of unspecified site active Fabienne Cottrell Chest pain active Kajal Brennan Thoracic or lumbosacral neur itis or radiculitis, unspecified active DORON LEAHY MD Brachial neuritis or radiculitis NOS active Fabienne Cottrell ENCOUNTERS Date Type Provider Location Encounter Diag nosis - In-person encounter Office Visit DORON LEAHY MD [facility] - In-person encounter Office Visit DORON LEAHY MD [facility] - In-person encounter Office Visit DORON LEAHY MD [facility] - In-person encounter Office Visit DORON LEAHY MD [facility] - In-person encounter Office Visit DORON LEAHY MD [facility] - In-person encounter Office Visit DORON LEAHY MD [facility] - In-person encounter Office Visit DORON LEAHY MD [facility] - In-person encounter Office Visit DORON LEAHY MD [facility] - In-person encounter Office Visit DORON LEAHY MD [facility] - In-person encounter Office Visit DORON LEAHY MD [facility] - In-person encounter Office Visit DORON LEAHY MD [facility] - In-person encounter Office Visit DORON LEAHY MD [facility] - In-person encounter Office Visit DORON LEAHY MD [facility] - In-person encounter Office Visit DORON LEAHY MD [facility] - In-person encounter Office Visit DORON LEAHY MD [facility] - In-person encounter Office Visit DORON LEAHY MD [facility] - In-person encounter Office Visit DORON LEAHY MD [facility] - In-person encounter Office Visit DORON LEAHY MD [facility] - In-person encounter Office Visit DORON LEAHY MD [facility] - In-person encounter Office Visit DORON LEAHY MD [facility] - In-person encounter Office Visit DORON LEAHY MD [facility] - In-person encounter Office Visit DORON LEAHY MD [facility] - In-person encounter Office Visit DORON LEAHY MD [facility] - In-person encounter Office Visit DORON LEAHY MD [facility] - In-person encounter Office Visit DORON LEAHY MD [facility] - In-person encounter Office Visit DORON LEAHY MD [facility] - In-person encounter Office Visit DORON LEAHY MD [facility] - In-person encounter Office Visit DORON LEAHY MD [facility] - In-person encounter Office Visit DORON LEAHY MD [facility] - In-person encounter Office Visit DORON LEAHY MD [facility] - In-person encounter Office Visit DORON LEAHY MD [facility] - In-person encounter Office Visit DORON LEAHY MD [facility] - In-person encounter Office Visit DORON LEAHY MD [facility] - In-person encounter Office Visit DORON LEAHY MD [facility] - In-person encounter Office Visit DORON LEAHY MD [facility] - In-person encounter Office Visit DORON LEAHY MD [facility] - In-person encounter Office Visit DORON LEAHY MD [facility] - In-person encounter Office Visit Adithya Byrne [facility] - In-person encounter Office Visit DORON LEAHY MD [facility] - In-person encounter Office Visit DORON LEAHY MD [facility] - In-person encounter Office Visit DORON LEAHY MD [facility] - In-person encounter Office Visit DORON LEAHY MD [facility] - In-person encounter Office Visit DORON LEAHY MD [facility] - In-person encounter Office Visit DORON LEAHY MD [facility] - In-person encounter Office Visit DORON LEAHY MD [facility] Thoracic or lumbosacral neuritis or radiculitis, unspecifiedBrachial neuritis or radiculitis NOS - In-person encounter Office Visit Adithya [facility] Office - In-person encounter Office Visit Adithya [facility] Office - In-person encounter Office Visit Adithya [facility] Office - In-person encounter Office Visit Adithya [facility] - In-person encounter Office Visit Adithya [facility] Office - [facility] Office Visit Adithya Byrne [facility] - In-person encounter Office Visit Adithya [facility] Office - In-person encounter Office Visit Adithya [facility] Office - In-person encounter Office Visit Adithya [facility] Office - In-person encounter Office Visit [facility] Office ALLERGIES Allergy Name Onset Date Reaction [...] 8.7 2 bilirubin, serum, total 0.3 mg/dL [facility] 0.0 - 1.2 2 urea nitrogen, blood 18.0 mg/dL [facility] 8.0 - 23.0 2 blood glucose, random 90.0 mg/dL [facility] 74.0 - 99.0 2 red blood cell distribution width, size density 44.0 fL [facility] - 2 immature granulocytes, percentage of total cells, blood 0.2 % [facility] - 2 nucleated red blood cells as percent of blood leukocytes 0.0 % [facility] - 2 red blood cell (erythrocyte) count, per high power field 0.0 10*3/UL [facility] - 2 eosinophils as percent of blood leukocytes 3.2 % [facility] - 2 neutrophils as percent of blood leukocytes 59.0 % [facility] - 2 Absolute Neutrophils 2.8 CELLS/UL [facility] 1.5 - 7.8 2 basophils as percent of blood leukocytes 0.6 % [facility] - 2 Absolute Basophils 0.0 CELLS/UL [facility] 0.0 - 0.2 2 monocytes as percent of blood leukocytes 6.2 % [facility] - 2 Absolute Monocytes 0.3 CELLS/UL [facility] 0.2 - 1.0 2 lymphocytes as percent of blood leukocytes 30.8 % [facility] - 2 Absolute Lymphocytes 1.4 CELLS/UL [facility] 0.9 - 3.9 2 mean platelet volume 10.9 (?) [facility] - 2 platelet count 181.0 [...] Payer name Policy type / Coverage type [place] [employer] party ID AETNA [facility] Other [id number] TREATMENT PLAN Date Name TSH, 3RD GENERATION W/REFLEX TO FT4 LIPID PANEL COMPREHENSIVE METABO LIC PANEL W/EGFR CBC (INCLUDES DIFF/P LT) HISTORY OF PROCEDURES Procedure Date Procedure Name Provider Procedure Notes S tatus Stress EKG DORON LEAHY MD completed Cardiolite, 2 units DORON LEAHY MD completed SPECT Images Jey Desai MD compl eted
--- OUTSIDE RECORDS SUMMARY | 2024-12-14 08:09 | XMS_ITS | Patient Health Record ---
Author Organization [facility] Address [address] [place] [address] Care Team Providers Care Repair Weaver Name Role Phone Mynor Reid Primary Care Provider UnavailKofi Aponte Unavailable [phone] Alex Abdi Unavailable Unavailable Allergies No Known Allergies Reason For Referral Reason (B) L3-4 rf Diagnosis 1 Spondylosis without myelopathy or radiculopathy, lumbar region (M47.816) Referred Organization [facility] Referred Provider Kofi Lugo Referred Address [address],[place], [place],[address], Referred Provider Specialty Pain Medicin e Procedure 1 DEST. LUMSCRL RF KANE ROLYTIC ([id number]) General Notes approved through dot core, scanned in chart, KlineRadha mac 05/18/2024 01:58:53 PM > Referral Priority Routine [...] Risk Notes Problem Fear of medical treatment (352973923) Fear of injections and transfusions (F40.231) Active confirmed Problem Essential hypertension (52882125) Essential (primary) hypertension (I10) Active confirmed Problem Lumbosacral spondylosis without myelopathy (99117098) Spondylosis without myelopathy or radiculopathy, lumbar region (M47.816) Active confirmed Vital Signs Heart Rate 62 /min 06/01/2024 Temperature 97.4 degrees Fahrenheit 06/01/2024 Respiratory Rate 16 /min 06/01/2024 Blood pressure diastolic 59 mm Hg 06/01/2024 Height 62 in 06/01/2024 Blood pressure systolic 113 mm Hg 06/01/2024 Weight 153 lbs 06/01/2024 BMI 27.98 kg/m2 06/01/2024 Encounters Encounter Location Date Provider Diagnosis [facility] [address] [address] 05/18/2024 Kofi Lugo Spondylosis without myelopathy or radiculopathy, lumbar region M47.816 and Fear of injections and transfusions F40.231 [facility] [address] [address] 06/01/2024 Kofi Lugo Spondylosis without myelopathy or radiculopathy, lumbar region M47.816 and Fear of injections and transfusions F40.231 [facility] [address] [address] 10/18/2024 Kofi Lugo [facility] [address] [address] 05/18/2024 Kofi Lugo Assessments Encounter Date Diagnosis [...] Date Coverage End Date A[employer] [address] [facility] [place] [place] [address] [id number] Keiko Noonan Self - patient is the insured Medical (General) History Medical History History ICD Code high blood pressure osteoarthrities Surgical History Surgery Date(Month/Year) breast biopsy 1978 partial hysterectomy 1990 carpel tunnel right
--- OUTSIDE RECORDS SUMMARY | 2024-12-14 08:09 | XMS_ITS | Data Portability ---
Author Organization [place] - [facility], Main Office Address [address] [place] [address] Care Team Providers Care Staff Auditor Name Role Phone JOSE FRANCISCO CORTES Primary Care Provider [phone] Assessment Encounter Date Assessment Date Assessment LastModified by Organization Details LastModified Time 11/13/2023 11/13/2023 here for f/u visit, continue all current medications and f/u in 4 months she would like all her meds sent to mail order [email or web address] Not available 11/13/2023 11:42:53 Plan of Treatment Reminders Order Date Submit Date Provider Last Modified By Organization Details Last Modified Time Details Appointments Any 15 2024 08:00A JENNY Link Not available Not available Not available Lab CMP, serum or plasma 2023 024 [facility] (Lab), [address] [place], [address], 08/10/2024 19:40:42 lipid panel, serum 2023 024 [facility] (Lab), [address] [place], [address], 08/10/2024 19:40:45 CBC w/ auto diff 2023 024 [facility] (Lab), [address] [place], [address], 08/10/2024 19:22:39 culture, urine 2022 023 [facility] (Lab), [address] [place], [address], 06/20/2023 08:47:30 urinalysi s, dipstick 2022 023 [facility] [address], [address] [place], [address], 06/19/2023 12:43:31 vitamin D, 25-hydrox y, total, serum [email or web address] [place] [address] (Lab), [address] [place], [address], 06/30/2023 08:41:24 CMP, serum or plasma 2022 023 [facility] (Lab), [address] [place], [address], 06/19/2023 20:55:00 lipid panel, serum 2022 023 [facility] (Lab), [address] [place], [address], 06/19/2023 20:55:07 CBC w/ auto diff 2022 023 [facility] (Lab), [address] [place], [address], 06/19/2023 20:54:00 Referral None recorded. Procedures None recorded. Surgeries None recorded. Imaging None recorded. Medication Orders omeprazol e 40 mg capsule,d elayed release 2023 024 [facility] [place] [address], 11/13/2023 11:46:34 alendrona te 70 mg tablet 2023 024 [facility] [place], [address], 11/13/2023 11:46:35 gabapenti n 600 mg tablet 2023 024 [facility], [facility], [place], [address], 11/13/2023 11:46:35 amlodipin e 10 mg tablet 2023 024 [facility], [facility], [place], [address], 11/13/2023 11:46:33 metoprolo l succinate ER 100 mg tablet,ex tended release 24 hr 2023 024 [facility], [facility], [place], [address], 11/13/2023 11:46:36 benzonata te 100 mg capsule 2023 024 [email or web address] [id number], [address], [place], [place], [id number], 03/09/2024 10:31:28 duloxetin e 40 mg capsule,d elayed release 2023 024 [facility], [facility], [place], [address], 11/13/2023 11:46:37 Macrobid 100 mg capsule 2022 023 [email or web address] 2 [facility] #[id number], [address], [place], [place], [id number], 07/16/2023 10:23:22 gabapenti n 600 mg tablet 2022 023 [id number] [address], [id number], 06/19/2023 12:42:03 Patient TargetsNo targets recorded. Patient Instructions Encounter Date Encounter Id Patient Instructions Last Modified By Organization Details Last Modified Time 03/09/2024 [id number] dementia rating scale-2* Not available 03/09/2024 16:39:33 alcohol misuse* Not available 03/09/2024 16:39:33 depression screening* Not available 03/09/2024 16:39:33 Timed Up and Go test (TUG)* Not available 03/09/2024 16:39:33 multi-dimensiona l health assessment questionnaire* Not available 03/09/2024 16:39:33 advance directiv es: care instructions Not available 03/09/2024 16:39:33 advance care planning: care instructions Not available 03/09/2024 16:39:33 [place] Advance Directives Not available 03/09/2024 16:39:33 Personalized [facility] lt Plan and Screening Recommendations Advance Directives - Do you have one? No You have indicated that you are capable of preparing your advance care directive Advance Directives - Do we have your advance directive on file in your health record? No, please bring in a copy at your earliest convenience Primary Prevention/Interven tion (prevents or decreases the chance of common diseases from occurring) Smoking Risk: Non Smoker Alcohol Misuse Screening: Negative Weight: Overweight try to lose 10% of your body weight Physical activity: Need more exercise/physical activity minimum of 10-20 minutes of activity that causes mild breathlessness/day Nutrition: Average Refer to attached handout DASH Diet: After Your Visit Fall Risk (screened today): Intermediate Refer to attached handout Preventing Falls: After your Visit Vaccines Pneumococcal: No further needed Influenza: Your next one in the fall of this year Chronic Disease Risks Stroke: Low Risk Active diagnosis, Continue current treatment plan Heart Attack: Low risk Active diagnosis, Continue current treatment plan Clogging of the Arteries: Low risk I have no recommendations Diabetes: Low Risk I have no recommendations Secondary Prevention/Interven tion (detects treatable diseases before they may cause symptoms, disability, or ) Breast Cancer Screening with mammogram: Your next mammogram: Ordered Recommended today Recommended today, but you have declined No screening necessary No screening necessary-done 03/2023 Cervical/Uterine/Ov faith Cancer Screening: No screening necessary Osteoporosis Screening: Your next DEXA in: Ordered Recomme nded today Recommended today, but you have declined No screening necessary Your next DEXA in: 2024 Date Screening Last Performed: Colon Cancer Screening: Colonoscopy Ordered Date Screening Last Performed: _ Eye Disease Screening: Ordered Recommended today Recommended today, but you have declined No Eye exam necessary scheduled Dementia Risk: Low I have no recommendations Depression Screening: Negative Recommend additional evaluation and/or treatment as noted above Recommend follow appointment to further evaluate Recommend Behavioral Health referral Active diagnosis, Continue current treatment plan I have no recommendations. [email or web address] Not available 03/09/2024 13:26:31 Reason for Referral None Reported. Results Created Date Observation Date Name Description Value Unit Range Abnormal Flag Note LastModifiedBy Organization Detail LastModifiedTime 06/19/2006/19/2023 CBC/C OMPLE TE BLD COUNT W/DIF F white blood cells 5.8 x10'3 /uL 4.2-10 .8 Not Available [facility] (Lab) [address] [place], [address], 06/19/2023 20:53:59 06/19/20 23 06/19/2023 CBC/C OMPLE TE BLD COUNT W/DIF F red blood cells 4.62 x10'6 /uL 3.80-5 .20 Not Available [facility] (Lab) [address] [place], [address], 06/19/2023 20:53:59 06/19/20 23 06/19/2023 CBC/C OMPLE TE BLD COUNT W/DIF F hemoglobin 12.2 g/dL 12.0-1 5.6 Not Available [facility] (Lab) [address] [place], [address], 06/19/2023 20:53:59 06/19/20 23 06/19/2023 CBC/C OMPLE TE BLD COUNT W/DIF F hematocrit 38.4 % 35.7-4 5.7 Not Available [facility] (Lab) [address] [place], [address], 06/19/2023 20:53:59 06/19/20 23 06/19/2023 CBC/C OMPLE TE BLD COUNT W/DIF F mean red cell volume 83.1 fL 82.0-9 9.0 Not Available [facility] (Lab) [address] [place], [address], 06/19/2023 20:53:59 06/19/20 23 06/19/2023 CBC/C OMPLE TE BLD COUNT W/DIF F mean red cell hemoglobin 26.4 pg 27.0-3 3.0 low Not Available [facility] (Lab) [address] [place], [address], 06/19/2023 20:53:59 06/19/20 23 06/19/2023 CBC/C OMPLE TE BLD COUNT W/DIF F mean RBC HGB concentratio n 31.8 g/dL 31.0-3 6.0 Not Available [facility] (Lab) [address] [place], [address], 06/19/2023 20:53:59 06/19/20 23 06/19/2023 CBC/C OMPLE TE BLD COUNT W/DIF F red cell distribution width 14.7 % 11.8-1 5.5 Not Available [facility] (Lab) [address] [place], [address], 06/19/2023 20:53:59 06/19/20 23 06/19/2023 CBC/C OMPLE TE BLD COUNT W/DIF F platelets 177 x10'3 /uL 150-40 0 Not Available [facility] (Lab) [address] [place], [address], 06/19/2023 20:53:59 06/19/20 23 06/19/2023 CBC/C OMPLE TE BLD COUNT W/DIF F mean platelet volume 10.6 fL 9.0-12 .4 Not Available [facility] (Lab) [address] [place], [address], 06/19/2023 20:53:59 06/19/20 23 06/19/2023 CBC/C OMPLE TE BLD COUNT W/DIF F neutrophils 70.9 % 39.0-7 2.0 Not Available [facility] (Lab) [address] [facility] [place], [address], 06/19/2023 20:53:59 06/19/20 23 06/19/2023 CBC/C OMPLE TE BLD COUNT W/DIF F lymphocytes 17.6 % 16.0-4 7.0 Not Available [facility] (Lab) [address] [place], [address], 06/19/2023 20:53:59 06/19/20 23 06/19/2023 CBC/C OMPLE TE BLD COUNT W/DIF F monocytes 7.3 % 5.0-12 .0 Not Available [facility] (Lab) [address] [facility] [place], [address], 06/19/2023 20:53:59 06/19/20 23 06/19/2023 CBC/C OMPLE TE BLD COUNT W/DIF F eosinophils 3.3 % 1.0-7. 0 Not Available [facility] (Lab) [address] [place], [address], 06/19/2023 20:53:59 06/19/20 23 06/19/2023 CBC/C OMPLE TE BLD COUNT W/DIF F basophils 0.7 % 0.0-2. 0 Not Available [facility] (Lab) [address] [place], [address], 06/19/2023 20:53:59 06/19/20 23 06/19/2023 CBC/C OMPLE TE BLD COUNT W/DIF F immature granulocytes 0.2 % 0.00-0 .50 Not Available [facility] (Lab) [address] [place], [address], 06/19/2023 20:53:59 06/19/20 23 06/19/2023 CBC/C OMPLE TE BLD COUNT W/DIF F neutrophils, absolute count 4.10 x10'3 /uL 1.5-8. 0 Not Available [facility] (Lab) [address] [place], [address], 06/19/2023 20:53:59 06/19/20 23 06/19/2023 CBC/C OMPLE TE BLD COUNT W/DIF F lymphocytes, absolute count 1.02 x10'3 /uL 1.07-3 .43 low Not Available [facility] (Lab) [address] [place], [address], 06/19/2023 20:53:59 06/19/20 23 06/19/2023 CBC/C OMPLE TE BLD COUNT W/DIF F monocytes, absolute count 0.42 x10'3 /uL 0.29-0 .99 Not Available [facility] (Lab) [address] [place], [address], 06/19/2023 20:53:59 06/19/20 23 06/19/2023 CBC/C OMPLE TE BLD COUNT W/DIF F eosinophils, absolute count 0.19 x10'3 /uL 0.02-0 .53 Not Available [facility] (Lab) [address] [place], [address], 06/19/2023 20:53:59 06/19/20 23 06/19/2023 CBC/C OMPLE TE BLD COUNT W/DIF F basophils, absolute count 0.04 x10'3 /uL 0.01-0 .08 Not Available [facility] (Lab) [address] [place], [address], 06/19/2023 20:53:59 06/19/20 23 06/19/2023 CBC/C OMPLE TE BLD COUNT W/DIF F immature granulocytes ,absolute 0.01 x10'3 /uL 0.00-0 .05 Not Available [facility] (Lab) [address] [place], [address], 06/19/2023 20:53:59 06/19/20 23 06/19/2023 CBC/C OMPLE TE BLD COUNT W/DIF F nucleated red blood cells 0.0 % -0 Not Available [facility] (Lab) [address] [place], [address], 06/19/2023 20:53:59 06/19/20 23 06/19/2023 CBC/C OMPLE TE BLD COUNT W/DIF F NRBC# 0.00 x10'3 /uL Not Available [facility] (Lab) [address] [place], [address], 06/19/2023 20:53:59 06/19/20 23 06/19/2023 COMPR EHENS DENISE METAB OLIC PANEL sodium 137 mmol/ L 137-14 5 Not Available [facility] (Lab) [address] [place], [address], 06/19/2023 20:55:00 06/19/20 23 06/19/2023 COMPR EHENS DENISE METAB OLIC PANEL potassium 4.8 mmol/ L 3.5-5. 1 Not Available [facility] (Lab) [address] [place], [address], 06/19/2023 20:55:00 06/19/20 23 06/19/2023 COMPR EHENS DENISE METAB OLIC PANEL chloride 104 mmol/ L 98-107 Not Available [facility] (Lab) [address] [place], [address], 06/19/2023 20:55:00 06/19/20 23 06/19/2023 COMPR EHENS DENISE METAB OLIC PANEL carbon dioxide 25 mmol/ L 22-30 Not Available [facility] (Lab) [address] [place], [address], 06/19/2023 20:55:00 06/19/20 23 06/19/2023 COMPR EHENS DENISE METAB OLIC PANEL anion gap 12.8 mmol/ L 14-22 low Not Available [facility] (Lab) [address] [place], [address], 06/19/2023 20:55:00 06/19/20 23 06/19/2023 COMPR EHENS DENISE METAB OLIC PANEL glucose 93 mg/dL 70-99 Not Available [facility] (Lab) [address] [place], [address], 06/19/2023 20:55:00 06/19/20 23 06/19/2023 COMPR EHENS DENISE METAB OLIC PANEL BUN 20 mg/dL 8-19 high Not Available [facility] (Lab) [address] [place], [address], 06/19/2023 20:55:00 06/19/20 23 06/19/2023 COMPR EHENS DENISE METAB OLIC PANEL creatinine 0.97 mg/dL 0.66-1 .25 Not Available [facility] (Lab) [address] [place], [address], 06/19/2023 20:55:00 06/19/20 23 06/19/2023 COMPR EHENS DENISE METAB OLIC PANEL GFR 57 Refer ence Range : [place] ge GFR Healt hy Adult : >60 mL/mi n/1.7 3 m2 Chron ic Kidne y Disea se: 15-60 mL/mi n/1.7 3 m2 Kidne y Failu re: <15/m L/min /1.73 m2 www.n iddk. nih.g ov The MDRD study equat ion has not been valid ated in child rylan <18 years of age; pregn ant women ; the elder ly >85 years of age; or in some racia l or ethni c subgr oups, such as Hispa nics. Outsi de the valid ated davonte eters , estim ated GFR is less accur ate, requi ring clini glenda judgm ent on a case- by-ca se basis . Clini glenda inter preta tion for other races and ages must be made by the clini carmel. The MDRD study equat ion has not been valid ated for the evalu ation of serum creat inine relat ed to nutri jose miguel l statu s or medic ation usage . For perso ns <18 years of age, a pedia tric GFR calcu lator is avail able on the [facility] websi te: https ://ledy w.kid lester.o rg/pr ofess ional s/kdo qi/gf r_cal culat or Not Available [facility] (Lab) [address] [place], [address], 06/19/2023 20:55:00 06/19/20 23 06/19/2023 COMPR EHENS DENISE METAB OLIC PANEL alkaline phosphatase 62 U/L 38-126 Not Available [facility] (Lab) [address] [place], [address], 06/19/2023 20:55:00 06/19/20 23 06/19/2023 COMPR EHENS DENISE METAB OLIC PANEL alanine aminotransfe rase 20 U/L 0-35 Not Available [facility] (Lab) [address] [place], [address], 06/19/2023 20:55:00 06/19/20 23 06/19/2023 COMPR EHENS DENISE METAB OLIC PANEL aspartate aminotransfe rase 37 U/L 15-37 Not Available [facility] (Lab) [address] [place], [address], 06/19/2023 20:55:00 06/19/20 23 06/19/2023 COMPR EHENS DENISE METAB OLIC PANEL bilirubin, total 0.60 mg/dL 0.20-1 .30 Not Available [facility] (Lab) [address] [place], [address], 06/19/2023 20:55:00 06/19/20 23 06/19/2023 COMPR EHENS DENISE METAB OLIC PANEL calcium 9.8 mg/dL 8.4-10 .2 Not Available [facility] (Lab) [address] [place], [address], 06/19/2023 20:55:00 06/19/20 23 06/19/2023 COMPR EHENS DENISE METAB OLIC PANEL total protein 7.4 g/dL 6.3-8. 2 Not Available [facility] (Lab) [address] [facility] [place], [address], 06/19/2023 20:55:00 06/19/20 23 06/19/2023 COMPR EHENS DENISE METAB OLIC PANEL albumin 4.3 g/dL 3.0-4. 4 Not Available [facility] (Lab) [address] [place], [address], 06/19/2023 20:55:00 06/19/20 23 06/19/2023 COMPR EHENS DENISE METAB OLIC PANEL globulin 3.1 g/dL 2.6-4. 2 Not Available [facility] (Lab) [address] [place], [address], 06/19/2023 20:55:00 06/19/20 23 06/19/2023 COMPR EHENS DENISE METAB OLIC PANEL A/G ratio 1.4 ratio 1.0-2. 0 Not Available [facility] (Lab) [address] [place], [address], 06/19/2023 20:55:00 06/19/20 23 06/19/2023 LIPID PANEL cholesterol 171 mg/dL 140-19 9 NIH MALIA NSUS RECOM MENDA TION FOR CARLO STERO L: ADULT CHILD LOW RISK: <200 <170 BORDE RLINE : <200- 239 ----- HIGH RISK: >240 >200 Not Available [facility] (Lab) [address] [place], [address], 06/19/2023 20:55:07 06/19/20 23 06/19/2023 LIPID PANEL triglyceride s 81 mg/dL 0-150 NIH MALIA NSUS REPOR T RECOM MENDA TION FOR TRIGL YCERI MATHEW: ADULT CHILD LOW RISK: <150 ----- BODER LINE: 150-1 99 ----- HIGH RISK: >200 ----- Not Available [facility] (Lab) [address] [place], [address], 06/19/2023 20:55:07 06/19/20 23 06/19/2023 LIPID PANEL HDL cholesterol 57 mg/dL 40- Not Available [facility] (Lab) [address] [place], [address], 06/19/2023 20:55:07 06/19/20 23 06/19/2023 LIPID PANEL LDL cholesterol, calculated 98 mg/dL 0-130 NIH MALIA NSUS REPOR T RECOM MENDA TIONS FOR LDL: ADULT CHILD LOW RISK <130 <110 (OPTI MAL LDL) <100 ----- BORDE RLINE : 130-1 59 ----- HIGH RISK: >160 >130 A TRIGL YCERI DE RESUL T >400 INVAL IDATE S THE CALCU LATIO N FOR LDL FRACT IONAT ION - THE LDL RESUL T WILL NOT BE REPOR [place]. Not Available [facility] (Lab) [address] [place], [address], 06/19/2023 20:55:07 06/19/20 23 06/19/2023 VITAM IN D 25-HY DROXY [id number] 67.8 NG/mL 30-100 Vitam in D Statu s: Defic ient: <20 ng/mL Insuf ficie nt: 20-29 ng/mL Suffi cient : 30-10 0 ng/mL Not Available [facility] (Lab) [address] [place], [address], 06/19/2023 21:08:25 06/19/20 23 06/19/2023 CULTU RE URINE urc ===== ===== ===== ===== ===== ===== ===== ===== ===== ===== ===== ===== ===== ===== ===== ===== ===== ===== ===== ===== ===== ===== ===== ===== CULTU RE NO.: [id number] Exam Statu s: Final Exam Type: CULTU RE URINE ===== ===== ===== ===== ===== ===== ===== ===== ===== ===== ===== ===== ===== ===== ===== ===== ===== ===== ===== ===== ===== ===== ===== ===== Cultu re Repor t: Organ ism #01 Citro bacte r koser i (citd iv) Antib iotic s citdi v Achie vable Achie vable (01) Dosag e Serum Level Urine Level mcg/m l mcg/m l Christy laura <=2 S 021A Cefaz zoey <=4 S 021A Cefep cathie <=1 S 021A Cefox itin 16 I 021A Ceftr iaxon e <=1 S 021A Cipro floxa laura <=0.2 5 S 021A Genta micin <=1 S 021A Levof loxac in <=0.1 2 S 021A Piper acill in./T azaba <=4 S 021A Tobra mycin <=1 S 021A Trmet hopri m.Sul fa <=20 S 021A rt - Test Card Code AST-G N 021A o2 - Final Organ ism CITRO B 021A af - Antib iotic Fami TRIME T 021A af - Antib iotic Famil y Na ap - Pheno type Name WILD 021A ap - Pheno type Name Nitro furan toin <=16 S 021A Not Available [facility] (Lab) [address], [place], [address], 06/22/2023 07:43:44 06/19/20 23 06/19/2023 urina lysis , dipst ick Leukocytes (reference range: negative silviano/ l) Large Not Available [facility] [address] [place], [address], 06/19/2023 09:40:53 06/19/20 23 06/19/2023 urina lysis , dipst ick Nitrite (reference rage: negative mg/dl) positi ve Not Available [facility] [address] [place], [address], 06/19/2023 09:40:53 06/19/20 23 06/19/2023 urina lysis , dipst ick Urobilinogen (reference range: 0.2-1 mg/dl) 0.2 Not Available [facility] [address] [place], [address], 06/19/2023 09:40:53 06/19/20 23 06/19/2023 urina lysis , dipst ick Protein (reference range: negative mg/dl) Modera te Not Available [facility] [address] [place], [address], 06/19/2023 09:40:53 06/19/20 23 06/19/2023 urina lysis , dipst ick pH (reference range: 5-7) 5.5 Not Available [facility] [address] [place], [address], 06/19/2023 09:40:53 06/19/20 23 06/19/2023 urina lysis , dipst ick Blood (reference range: negative Henry/ l) Large Not Available [facility] [address] [place], [address], 06/19/2023 09:40:53 06/19/20 23 06/19/2023 urina lysis , dipst ick Specific [place] (reference range: 1.005-1.030) 1.020 Not Available [facility] [address] [place], [address], 06/19/2023 09:40:53 06/19/20 23 06/19/2023 urina lysis , dipst ick Ketone (reference range: negative mg/dl) Negati ve Not Available [facility] [address] [place], [address], 06/19/2023 09:40:53 06/19/20 23 06/19/2023 urina lysis , dipst ick Bilirubin (reference range: negative mg/dl) Negati ve Not Available [facility] [address] [place], [address], 06/19/2023 09:40:53 06/19/20 23 06/19/2023 urina lysis , dipst ick Glucose (reference range: negative mg/dl) Negati ve Not Available [facility] [address] [place], [address], 06/19/2023 09:40:53 06/19/20 23 06/19/2023 urina lysis , dipst ick Appearance Cloudy Not Available [facility] [address] [place], [address], 06/19/2023 09:40:53 06/19/20 23 06/19/2023 urina lysis , dipst ick Color Dark Yellow Not Available [facility] [address] [place], [address], 06/19/2023 09:40:53 08/10/19 25 08/10/2024 CBC/C OMPLE TE BLD COUNT W/DIF F white blood cells 5.5 x10'3 /uL 4.2-10 .8 Not Available [facility] (Lab) [address] [place], [address], 08/10/2024 19:22:39 08/10/19 25 08/10/2024 CBC/C OMPLE TE BLD COUNT W/DIF F red blood cells 4.90 x10'6 /uL 3.80-5 .20 Not Available [facility] (Lab) [address] [place], [address], 08/10/2024 19:22:39 08/10/19 25 08/10/2024 CBC/C OMPLE TE BLD COUNT W/DIF F hemoglobin 12.5 g/dL 12.0-1 5.6 Not Available [facility] (Lab) [address] [place], [address], 08/10/2024 19:22:39 08/10/19 25 08/10/2024 CBC/C OMPLE TE BLD COUNT W/DIF F hematocrit 41.2 % 35.7-4 5.7 Not Available [facility] (Lab) [address] [place], [address], 08/10/2024 19:22:39 08/10/19 25 08/10/2024 CBC/C OMPLE TE BLD COUNT W/DIF F mean red cell volume 84.1 fL 82.0-9 9.0 Not Available [facility] (Lab) [address] [place], [address], 08/10/2024 19:22:39 08/10/19 25 08/10/2024 CBC/C OMPLE TE BLD COUNT W/DIF F mean red cell hemoglobin 25.5 pg 27.0-3 3.0 low Not Available [facility] (Lab) [address] [place], [address], 08/10/2024 19:22:39 08/10/19 25 08/10/2024 CBC/C OMPLE TE BLD COUNT W/DIF F mean RBC HGB concentratio n 30.3 g/dL 31.0-3 6.0 low Not Available [facility] (Lab) [address] [place], [address], 08/10/2024 19:22:39 08/10/19 25 08/10/2024 CBC/C OMPLE TE BLD COUNT W/DIF F red cell distribution width 15.0 % 11.8-1 5.5 Not Available [facility] (Lab) [address] [place], [address], 08/10/2024 19:22:39 08/10/19 25 08/10/2024 CBC/C OMPLE TE BLD COUNT W/DIF F platelets 193 x10'3 /uL 150-40 0 Not Available [facility] (Lab) [address] [place], [address], 08/10/2024 19:22:39 08/10/19 25 08/10/2024 CBC/C OMPLE TE BLD COUNT W/DIF F mean platelet volume 10.9 fL 9.0-12 .4 Not Available [facility] (Lab) [address] [place], [address], 08/10/2024 19:22:39 08/10/19 25 08/10/2024 CBC/C OMPLE TE BLD COUNT W/DIF F neutrophils 66.6 % 39.0-7 2.0 Not Available [facility] (Lab) [address] [place], [address], 08/10/2024 19:22:39 08/10/19 25 08/10/2024 CBC/C OMPLE TE BLD COUNT W/DIF F lymphocytes 21.9 % 16.0-4 7.0 Not Available [facility] (Lab) [address] [place], [address], 08/10/2024 19:22:39 08/10/19 25 08/10/2024 CBC/C OMPLE TE BLD COUNT W/DIF F monocytes 8.4 % 5.0-12 .0 Not Available [facility] (Lab) [address] [place], [address], 08/10/2024 19:22:39 08/10/19 25 08/10/2024 CBC/C OMPLE TE BLD COUNT W/DIF F eosinophils 2.2 % 1.0-7. 0 Not Available [facility] (Lab) [address] [place], [address], 08/10/2024 19:22:39 08/10/19 25 08/10/2024 CBC/C OMPLE TE BLD COUNT W/DIF F basophils 0.5 % 0.0-2. 0 Not Available [facility] (Lab) [address] [place], [address], 08/10/2024 19:22:39 08/10/19 25 08/10/2024 CBC/C OMPLE TE BLD COUNT W/DIF F immature granulocytes 0.4 % 0.00-0 .50 Not Available [facility] (Lab) [address] [place], [address], 08/10/2024 19:22:39 08/10/19 25 08/10/2024 CBC/C OMPLE TE BLD COUNT W/DIF F neutrophils, absolute count 3.66 x10'3 /uL 1.5-8. 0 Not Available [facility] (Lab) [address] [place], [address], 08/10/2024 19:22:39 08/10/19 25 08/10/2024 CBC/C OMPLE TE BLD COUNT W/DIF F lymphocytes, absolute count 1.20 x10'3 /uL 1.07-3 .43 Not Available [facility] (Lab) [address] [place], [address], 08/10/2024 19:22:39 08/10/19 25 08/10/2024 CBC/C OMPLE TE BLD COUNT W/DIF F monocytes, absolute count 0.46 x10'3 /uL 0.29-0 .99 Not Available [facility] (Lab) [address] [place], [address], 08/10/2024 19:22:39 08/10/19 25 08/10/2024 CBC/C OMPLE TE BLD COUNT W/DIF F eosinophils, absolute count 0.12 x10'3 /uL 0.02-0 .53 Not Available [facility] (Lab) [address] [place], [address], 08/10/2024 19:22:39 08/10/19 25 08/10/2024 CBC/C OMPLE TE BLD COUNT W/DIF F basophils, absolute count 0.03 x10'3 /uL 0.01-0 .08 Not Available [facility] (Lab) [address] [place], [address], 08/10/2024 19:22:39 08/10/19 25 08/10/2024 CBC/C OMPLE TE BLD COUNT W/DIF F immature granulocytes ,absolute 0.02 x10'3 /uL 0.00-0 .05 Not Available [facility] (Lab) [address] [place], [address], 08/10/2024 19:22:39 08/10/19 25 08/10/2024 CBC/C OMPLE TE BLD COUNT W/DIF F nucleated red blood cells 0.0 % -0 Not Available [facility] (Lab) [address] [place], [address], 08/10/2024 19:22:39 08/10/19 25 08/10/2024 CBC/C OMPLE TE BLD COUNT W/DIF F NRBC# 0.00 x10'3 /uL Not Available [facility] (Lab) [address] [place], [address], 08/10/2024 19:22:39 08/10/19 25 08/10/2024 COMPR EHENS DENISE METAB OLIC PANEL sodium 139 mmol/ L 137-14 5 Not Available [facility] (Lab) [address] [place], [address], 08/10/2024 19:40:41 08/10/19 25 08/10/2024 COMPR EHENS DENISE METAB OLIC PANEL potassium 4.6 mmol/ L 3.5-5. 1 Not Available [facility] (Lab) [address] [place], [address], 08/10/2024 19:40:41 08/10/19 25 08/10/2024 COMPR EHENS DENISE METAB OLIC PANEL chloride 104 mmol/ L 98-107 Not Available [facility] (Lab) [address] [place], [address], 08/10/2024 19:40:41 08/10/19 25 08/10/2024 COMPR EHENS DENISE METAB OLIC PANEL carbon dioxide 28 mmol/ L 22-30 Not Available [facility] (Lab) [address] [place], [address], 08/10/2024 19:40:41 08/10/19 25 08/10/2024 COMPR EHENS DENISE METAB OLIC PANEL anion gap 11.6 mmol/ L 14- low Not Available [facility] (Lab) [address] [place], [address], 08/10/2024 19:40:41 08/10/19 25 08/10/2024 COMPR EHENS DENISE METAB OLIC PANEL glucose 98 mg/dL 70-99 Not Available [facility] (Lab) [address] [place], [address], 08/10/2024 19:40:41 08/10/19 25 08/10/2024 COMPR EHENS DENISE METAB OLIC PANEL BUN 19 mg/dL 8-19 Not Available [facility] (Lab) [address] [place], [address], 08/10/2024 19:40:41 08/10/19 25 08/10/2024 COMPR EHENS DENISE METAB OLIC PANEL creatinine 1.01 mg/dL 0.66-1 .25 Not Available [facility] (Lab) [address] [place], [address], 08/10/2024 19:40:41 08/10/19 25 08/10/2024 COMPR EHENS DENISE METAB OLIC PANEL GFR 54 Refer ence Range : [place] ge GFR Healt hy Adult : >60 mL/mi n/1.7 3 m2 Chron ic Kidne y Disea se: 15-60 mL/mi n/1.7 3 m2 Kidne y Failu re: <15/m L/min /1.73 m2 www.n iddk. nih.g ov The MDRD study equat ion has not been valid ated in child rylan <18 years of age; pregn ant women ; the elder ly >85 years of age; or in some racia l or ethni c subgr oups, such as Hispa nics. Outsi de the valid ated davonte eters , estim ated GFR is less accur ate, requi ring clini glenda judgm ent on a case- by-ca se basis . Clini glenda inter preta tion for other races and ages must be made by the clini carmel. The MDRD study equat ion has not been valid ated for the evalu ation of serum creat inine relat ed to nutri jose miguel l statu s or medic ation usage . For perso ns <18 years of age, a pedia tric GFR calcu lator is avail able on the [facility] websi te: https ://ledy w.juanjo wangy.o rg/pr ofess ional s/kdo qi/gf r_cal culat or Not Available [facility] (Lab) [address] [place], [address], 08/10/2024 19:40:41 08/10/19 25 08/10/2024 COMPR EHENS DENISE METAB OLIC PANEL alkaline phosphatase 91 U/L 38-126 Not Available [facility] (Lab) [address] [place], [address], 08/10/2024 19:40:41 08/10/19 25 08/10/2024 COMPR EHENS DENISE METAB OLIC PANEL alanine aminotransfe rase 17 U/L 0-35 Not Available [facility] (Lab) [address] [place], [address], 08/10/2024 19:40:41 08/10/19 25 08/10/2024 COMPR EHENS DENISE METAB OLIC PANEL aspartate aminotransfe rase 38 U/L 15-37 high Not Available [facility] (Lab) [address] [place], [address], 08/10/2024 19:40:41 08/10/19 25 08/10/2024 COMPR EHENS DENISE METAB OLIC PANEL bilirubin, total 0.80 mg/dL 0.20-1 .30 Not Available [facility] (Lab) [address] [place], [address], 08/10/2024 19:40:41 08/10/19 25 08/10/2024 COMPR EHENS DENISE METAB OLIC PANEL calcium 9.7 mg/dL 8.4-10 .2 Not Available [facility] (Lab) [address] [place], [address], 08/10/2024 19:40:41 08/10/19 25 08/10/2024 COMPR EHENS DENISE METAB OLIC PANEL total protein 7.3 g/dL 6.3-8. 2 Not Available [facility] (Lab) [address] [place], [address], 08/10/2024 19:40:41 08/10/19 25 08/10/2024 COMPR EHENS DENISE METAB OLIC PANEL albumin 4.5 g/dL 3.0-4. 4 high Not Available [facility] (Lab) [address] [place], [address], 08/10/2024 19:40:41 08/10/19 25 08/10/2024 COMPR EHENS DENISE METAB OLIC PANEL globulin 2.8 g/dL 2.6-4. 2 Not Available [facility] (Lab) [address] [place], [address], 08/10/2024 19:40:41 08/10/19 25 08/10/2024 COMPR EHENS DENISE METAB OLIC PANEL A/G ratio 1.6 ratio 1.0-2. 0 Not Available [facility] (Lab) [address] [place], [address], 08/10/2024 19:40:41 08/10/19 25 08/10/2024 LIPID PANEL cholesterol 157 mg/dL 140-19 9 NIH MALIA NSUS RECOM MENDA TION FOR CARLO STERO L: ADULT CHILD LOW RISK: <200 <170 BORDE RLINE : <200- 239 ----- HIGH RISK: >240 >200 Not Available [facility] (Lab) [address] [place], [address], 08/10/2024 19:40:45 08/10/19 25 08/10/2024 LIPID PANEL triglyceride s 102 mg/dL 0-150 NIH MALIA NSUS REPOR T RECOM MENDA TION FOR TRIGL YCERI MATHEW: ADULT CHILD LOW RISK: <150 ----- BODER LINE: 150-1 99 ----- HIGH RISK: >200 ----- Not Available [facility] (Lab) [address] [place], [address], 08/10/2024 19:40:45 08/10/19 25 08/10/2024 LIPID PANEL HDL cholesterol 53 mg/dL 40- Not Available [facility] (Lab) [address] [place], [address], 08/10/2024 19:40:45 08/10/1908/10/2024 LIPID PANEL LDL cholesterol, calculated 84 mg/dL 0-130 NIH MALIA NSUS REPOR T RECOM MENDA TIONS FOR LDL: ADULT CHILD LOW RISK <130 <110 (OPTI MAL LDL) <100 ----- DEREK RLINE : 130-1 59 ----- HIGH RISK: >160 >130 A TRIGL YCERI DE RESUL T >400 INVAL IDATE S THE CALCU LATIO N FOR LDL FRACT IONAT ION - THE LDL RESUL T WILL NOT BE REPOR CLIFOTN. Not Available [facility] (Lab) [address] [place], [address], 08/10/2024 19:40:45 05/05/20 24 05/04/2024 MR, angio gram, pelvi s, w/o contr ast No observ ation record ed. BARCODE Not Available 2023 17:50:57 08/29/19 25 08/26/2024 XR, entir e spine No observ ation record ed. Not Available 2024 12:48:40 09/16/19 25 09/16/2024 MAMMO , scree donell, digit al, bilat eral No observ ation record ed. Not Available 2024 13:57:54 Result Notes None recorded. Problems Name Problem SNOMED Code Status Onset Date Resolution Date Notes Provider Name and Address Organization Details Recorded Time Impacted cerumen of bilateral ears 19965086190 20873 Completed 202103/09/2024 JENNY Hodge [address], [facility] [address], [place], [address] , [employer] 5 09:52:31 Impacted cerumen of bilateral ears 56328487120 35496 Completed 202106/25/2022 JENNY Hodge [address], [facility] [address], [place], [address] , [employer] 5 09:52:31 Chronic back pain 709443738 Active 2020 Not Available [facility] 3 03:22:12 Acute sinusitis 33818586 Completed 202105/27/2022 Radha Bhatti LPN null, [employer] 4 13:16:54 Insomnia 600615526 Active 2021 Not Available [facility] 3 03:22:12 Localized , primary osteoarth ritis of the hand 320523372 Active Not Available [facility] 3 03:22:12 Osteoarth ritis of joint of hand 28467812 Active Not Available [facility] 3 03:22:12 Gastroeso phageal reflux disease 979637555 Active 2020 Not Available [facility] 3 03:22:12 Osteoarth ritis of knee 509052128 Active Not Available [facility] 3 03:22:12 Urinary symptoms 126620881 Completed 202106/25/2022 Radha Bhatti LPN null, [employer] 5 11:20:04 Enthesopa thy of hip region 50747224 Completed Not Available [facility] 3 03:22:13 Osteopeni a 659505223 Active 2018 Not Available [facility] 3 03:22:13 Depressiv e disorder 27093574 Active 2021 Not Available [facility] 3 03:22:13 Arthropat hy of joint of hand 453201445 Completed Not Available [facility] 3 03:22:13 Anxiety 56733356 Active 2020 Not Available [facility] 3 03:22:13 Essential hypertens ion 88726965 Active 2020 Not Available [facility] 3 03:22:13 Urethral stricture 54926241 Active 2020 Not Available [facility] 3 03:22:13 Incontine nce of feces 30744162 Active 2023 Jose Francisco Cortes MD [address], [address], [place], [address] , [facility] 4 10:48:27 Anemia 234464354 Active 2023 Jose Francisco Cortes MD [address], [address], [place], [address] , [facility] 4 10:50:14 Acute sinusitis 60893412 Active 2023 Radha Bhatti LPN null, [place] [facility] 4 13:16:54 Urinary symptoms 306411807 Active 2024 Radha Bhatti LPN null, [place] [facility] 5 11:20:04 Sinusitis 35978632 Active 2024 Lina Trent MA null, [place] [facility] 5 11:35:10 Arthritis of spine 667886270 Active 2024 Jose Francisco Cortes MD [address], [address], [place], [address] , [place] [facility] 5 12:48:37 Impacted cerumen of bilateral ears 17087019719 26470 Active 2024 JENNY Hodge [address], [address], [place], [address] , [place] [facility] 5 09:52:31 Problem Notes None recorded. Procedures Surgical History Date Name Laterality Status Provider Name and Address Organization Details Recorded Time 03/09/20 24 Medicare Wellness CPT Code, subsequent completed Nidhi Shafer RN [facility] 03/09/2024 10:56:10 03/09/20 24 Advanced Care Planning completed Nidhi Shafer RN [place] [facility] 03/09/2024 12:07:51 02/07/20 23 Medicare Wellness CPT Code, subsequent completed Jamee Harman RN [facility] 02/06/2023 10:33:43 01/29/20 22 Date of Last Mammogram completed Jamee Harman RN [facility] 02/06/2023 10:35:23 07/18/20 21 Date of Last Colonoscopy completed Not Available [facility] 09/17/2022 03:14:33 07/08/20 20 Most Recent Bone Density completed Not Available [facility] 09/17/2022 03:14:33 Carpal tunnel completed Not Available [facility] 09/17/2022 03:14:37 Tonsillectomy completed Not Available [facility] 09/17/2022 03:14:37 Partial hysterectomy completed Not Available [facility] 09/17/2022 03:14:37 Imaging Results None recorded. Procedure Notes None recorded. Medical Equipment None Reported. Allergies Allergen ID Allergen Name Allergen Category Reaction Reaction Severity Criticality Documentation Date Start Date Code Code System Note Provider Name and Address Organization Details Recorded Time 6024 meloxicam medicatio n Not available Not available Not available 09/17/2022 73994 RxNorm abd pain Not Available [facility] 03:31:56 Medications Name Sig Start Date Stop Date Status Note LastModified by Organization Details LastModified Time amoxicill in 500 mg capsule TAKE 1 CAPSULE BY MOUTH THREE TIMES DAILY FOR 7 DAYS 09/02 completed per 08/22/24 patient case / ds Not Available Not Available Not Available prednison e 10 mg tablet TAKE 1 TABLET BY MOUTH TWICE DAILY 03/09 completed Not Available Not Available Not Available gabapenti n 600 mg tablet TAKE 2 TABLETS EVERY NIGHT AT BEDTIME 2024 active KRISTEN 11/09/24 NOV 03/15/25 ok to rf Not Available Not Available Not Available doxycycli ne hyclate 100 mg capsule TAKE 1 CAPSULE PO BID FOR 7 DAYS 03/09 completed Not Available Not Available Not Available trazodone 50 mg tablet TAKE 1 TABLET BY MOUTH AT BEDTIME NEEDED 11/12 completed Not Available Not Available Not Available azithromy laura 250 mg tablet TAKE 2 TABLETS (500 MG) BY ORAL ROUTE ONCE DAILY FOR 1 DAY THEN 1 TABLET (250 MG) BY ORAL ROUTE ONCE DAILY FOR 4 DAYS 09/02 completed Not Available Not Available Not Available alprazola m 1 mg tablet TAKE 1 TABLET BY MOUTH 30 MINUTES PRIOR TO TEST 06/19 completed Not Available Not Available Not Available benzonata te 200 mg capsule Take 1 capsule 3 times a day by oral route for 10 days. 2024 active Not Available Not Available Not Avai lable metoprolo l succinate ER 50 mg tablet,ex tended release 24 hr Take 1 tablet every day by oral route. active Not Available Not Available No t Available ampicilli n 500 mg capsule 03/09 completed Not Available Not Available Not Available hydrocodo ne 5 mg-acetam inophen 325 mg tablet TAKE 1 TABLET BY MOUTH TWICE A DAY NEEDED active Not Available Not Available No t Available meloxicam 15 mg tablet TAKE 1 TABLET BY MOUTH EVERY DAY active Not Available Not Available No t Available alendrona te 70 mg tablet TAKE 1 TABLET WEEKLY 2024 active Not Available Not Available Not Avai lable metoprolo l succinate ER 100 mg tablet,ex tended release 24 hr TAKE 1 TABLET DAILY active Not Available Not Available No t Available clobetaso l 0.05 % topical cream 03/20 completed Not Available Not Available Not Available clindamyc in HCl 150 mg capsule 03/09 completed Not Available Not Available Not Available hydrocodo ne 10 mg-acetam inophen 325 mg tablet 03/09 completed Not Available Not Available Not Available peg-elect rolyte solution 420 gram oral solution TK PO UTD 08/23 completed Not Available Not Available Not Available omeprazol e 40 mg capsule,d elayed release TAKE 1 CAPSULE DAILY 2024 active Not Available Not Available Not Avai lable amoxicill in 500 mg tablet Take 1 tablet 3 times a day by oral route for 7 days. active Not Available Not Available No t Available Celebrex 200 mg capsule 03/09 completed Not Available Not Available Not Available alprazola m 0.25 mg tablet TAKE 1 TABLET BY MOUTH 60 MINUTES BEFORE PROCEDUR E AND 1 TABLET 30 MINUTES BEFORE PROCEDUR E 06/24 completed Not Available Not Available Not Available amlodipin e 10 mg tablet TAKE 1 TABLET DAILY active Not Available Not Available No t Available benzonata te 100 mg capsule TAKE 1 CAPSULE BY MOUTH THREE TIMES DAILY FOR 7 DAYS NEEDED 03/09 completed Not Available Not Available Not Available desoximet asone 0.25 % topical ointment 03/09 completed Not Available Not Available Not Available deslorata dine 5 mg tablet 03/09 completed Not Available Not Available Not Available hydrocodo ne 7.5 mg-acetam inophen 325 mg tablet 03/09 completed Not Available Not Available Not Available cephalexi n 500 mg capsule 03/09 completed Not Available Not Available Not Available buspirone 10 mg tablet TAKE 1 TABLET BY MOUTH TWICE DAILY NEEDED 10/10 completed Not Available Not Available Not Available Guaifenes in AC 10 mg-100 mg/5 mL oral liquid 03/09 completed Not Available Not Available Not Available gabapenti n 300 mg capsule 03/09 completed Not Available Not Available Not Available magnesium citrate oral solution TK PO UTD 11/17 completed Not Available Not Available Not Available monteluka st 10 mg tablet Take 1 tablet(s ) every day by oral route. 06/24 completed Not Available Not Available Not Available hydroxyzi ne HCl 25 mg tablet 03/09 completed Not Available Not Available Not Available acetamino phen 300 mg-codein e 60 mg tablet TAKE 1 TABLET BY MOUTH EVERY DAY TO 3 TIMES A DAY NEEDED FILL 09/23 active Not Available Not Available No t Available zolpidem 5 mg tablet 03/09 completed Not Available Not Available Not Available ergocalci ferol (vitamin D2) 1,250 mcg (50,000 unit) capsule TAKE 1 CAPSULE BY MOUTH ONCE WEEKLY active Not Available Not Available No t Available clobetaso l 0.05 % topical ointment APPLY TOPICALL Y TO THE AFFECTED AREA TWICE DAILY 10/10 completed Not Available Not Available Not Available ibuprofen 600 mg tablet 03/09 completed Not Available Not Available Not Available levofloxa laura 500 mg tablet TAKE 1 TABLET BY MOUTH DAILY FOR 14 DAYS 02/25 completed Not Available Not Available Not Available estradiol 0.01% (0.1 mg/gram) vaginal cream USE 1 GRAM VAGINALL Y THREE TIMES PER WEEK 05/24 completed Not Available Not Available Not Available zolpidem 10 mg tablet 03/09 completed Not Available Not Available Not Available methylpre dnisolone 4 mg tablets in a dose pack FOLLOW PACKAGE DIRECTIO NS active Not Available Not Available No t Available Cipro 250 mg tablet Take 1 tablet every 12 hours by oral route for 7 days. 07/16 completed Not Available Not Available Not Available hydrocodo ne 7.5 mg-acetam inophen 500 mg tablet 03/09 completed Not Available Not Available Not Available dicyclomi ne 10 mg capsule TAKE 1 CAPSULE BY MOUTH THREE TIMES DAILY NEEDED FOR ABDOMINA L DISCOMFO RT 11/12 completed Not Available Not Available Not Available diazepam 5 mg tablet TAKE 1 TABLET BY MOUTH EVERY 6 HOURS NEEDED FOR ANXIETY active Not Available Not Available No t Available amoxicill in 500 mg-potass ium clavulana te 125 mg tablet 03/09 completed Not Available Not Available Not Available nitrofura ntoin monohydra te/macroc rystals 100 mg capsule TAKE 1 CAPSULE BY MOUTH EVERY 12 HOURS FOR 5 DAYS active Not Available Not Available No t Available duloxetin e 20 mg capsule,d elayed release TAKE 1 CAPSULE BY MOUTH EVERY DAY AT BEDTIME 06/03 completed Not Available Not Available Not Available Pylera 140 mg-125 mg-125 mg capsule TAKE BY MOUTH DIRECTED PER PACKAGE DIRECTIO NS 02/25 completed Not Available Not Available Not Available GaviLyte- G 236 gram-22.7 4 gram-6.74 gram-5.86 gram oral solution 03/09 completed Not Available Not Available Not Available Vagifem 10 mcg vaginal tablet 03/09 completed Not Available Not Available Not Available Prevnar 13 (PF) 0.5 mL intramusc ular syringe active Not Available Not Available Not Available Osphena 60 mg tablet 03/09 completed Not Available Not Available Not Available Fluvirin 1878-6258 45 mcg (15 mcg x 3)/0.5 mL intramusc ular suspensio n 03/09 completed Not Available Not Available Not Available duloxetin e 40 mg capsule,d elayed release TAKE 1 CAPSULE DAILY active Not Available Not Available No t Available Fluzone Quad 60 mcg (15 mcg x 4)/0.5 mL IM suspensio n 03/09 completed Not Available Not Available Not Available Narcan 4 mg/actuat ion nasal spray USE NASALLY DIRECTED 10/10 completed Not Available Not Available Not Available Fluzone Quad (P F) 60 mcg(15 mcgx4)/0. 5 mL intramusc ular syringe ADM 0.5ML IM UTD 07/26 completed Not Available Not Available Not Available Fluzone High-Dose (PF) 180 mcg/0.5 mL intramusc ular syringe active Not Available Not Available Not Available Fluzone High-Dose Quad (PF) 240 mcg/0.7 mL IM syringe 06/26 completed Not Available Not Available Not Available Vitals Date Recorded Body height Body mass index (BMI) Body weight Body temperature Heart rate Oxygen saturation Oxygen saturation in Arterial blood by Pulse oximetry Systolic blood pressure Diastolic blood pressure Provider Name and Address Organization Details Last Updated DateTime 5 157.48 cm 29.3 kg/m2 77724.7 8 g 96.8 [degF] 77 /min 97 % 97 % 144 mm[Hg] 80 mm[Hg] DELIA Caal [employer] 5 09:08:52 Date Recorded Body height Body mass index (BMI) Body weight Body temperature Heart rate Oxygen saturation Oxygen saturation in Arterial blood by Pulse oximetry Systolic blood pressure Diastolic blood pressure Provider Name and Address Organization Details Last Updated DateTime 4 157.48 cm 29 kg/m2 44420.4 7 g 98.4 [degF] 68 /min 98 % 98 % 129 mm[Hg] 60 mm[Hg] DELIA Hemphill [employer] [facility] 4 10:58:00 Date Recorded Body height Body mass index (BMI) Body weight Body temperature Heart rate Oxygen saturation Oxygen saturation in Arterial blood by Pulse oximetry Systolic blood pressure Diastolic blood pressure Provider Name and Address Organization Details Last Updated DateTime 4 157.48 cm 28.7 kg/m2 77203 g 98.2 [degF] 70 /min 97 % 97 % 118 mm[Hg] 64 mm[Hg] Gabriela Ludwig [place] [employer] [facility] [employer] 4 10:25:07 Date Recorded Body height Body mass index (BMI) Body weight Body temperature Heart rate Oxygen saturation Oxygen saturation in Arterial blood by Pulse oximetry Systolic blood pressure Diastolic blood pressure Provider Name and Address Organization Details Last Updated DateTime 3 157.48 cm 28.7 kg/m2 46479 g 97 [degF] 78 /min 97 % 97 % 100 mm[Hg] 60 mm[Hg] DELIA Caal [place] [employer] 3 09:23:54 Date Recorded Body height Body mass index (BMI) Body weight Heart rate Oxygen saturation Oxygen saturation in Arterial blood by Pulse oximetry Body temperature Systolic blood pressure Diastolic blood pressure Provider Name and Address Organization Details Last Updated DateTime 4 157.48 cm 29.1 kg/m2 43055.1 9 g 74 /min 98 % 98 % 98.1 [degF] 118 mm[Hg] 78 mm[Hg] Aisha samuels [employer] [facility] [employer] 4 11:11:33 Social History Question Answer Notes LastModified by Organization Details LastModified Time Tobacco Smoking Status Former Smoker states quit smoking around 1989 Nidhi Shafer RN [facility], [place] [employer] [facility] [employer] 03/09/2024 12:04:45 Do You Have An Advance Directive? No Paperwork Provided 03/09/2024 [email or web address] Information not available 03/09/2024 How Many Years Have You Consumed Alcohol? 49 21 [email or web address] Information not available 03/09/2024 Are You Blind Or Do You Have Difficulty Seeing? No Wears Glasses [id number] Information not available 09/17/2022 What Is Your Level Of Caffeine Consumption? Moderate [id number] Information not available 09/17/2022 In The 14 Days Before Symptom Onset, Have You Had Close Contact With A Laboratory-conf irmed COVID-19 While That Case Was Ill? No Not Applicable [email or web address] Information not available 03/09/2024 In The 14 Days Before Symptom Onset, Have You Had Close Contact With A Person Who Is Under Investigation For COVID-19 While That Person Was Ill? No Not Applicable [email or web address] Information not available 03/09/2024 Are You Deaf Or Do You Have Serious Difficulty Hearing? No MIGRATION.0301 [id number] Information not available 09/17/2022 What Type Of Diet Are You Following? REGULAR MIGRATION.0301 [id number] Information not available 09/17/2022 What Is The Highest Grade Or Level Of School You Have Completed Or The Highest Degree You Have Received? [id number] [email or web address] Information not available 03/09/2024 How Many Days Of Moderate To Strenuous Exercise, Like A Brisk Walk, Did You Do In The Last 7 Days? 0 [email or web address] Information not available 03/09/2024 Have There Been Any Changes To Your Family Or Social Situation? No [email or web address] Information not available 03/09/2024 What Is The Fluoride Status Of Your Home? Fluoridated MIGRATION.0301 [id number] Information not available 09/17/2022 When Did You Quit Smoking? 16+yearssincelastc igarette MIGRATION.0301 [id number] Information not available 09/17/2022 Do You Use Insect Repellent Routinely? Yes [email or web address] Information not available 03/09/2024 Where Do You Live? SingleLevelHouse [email or web address] Information not available 03/09/2024 Presence Of Domestic Violence No [email or web address] Information not available 03/09/2024 Are You Able To Care For Yourself? Yes [email or web address] Information not available 03/09/2024 Are You Blind Or Do Yo Have Difficulty Seeing? No [email or web address] Information not available 03/09/2024 Are You Deaf Or Do You Have Serious Difficulty Hearing? No [email or web address] Information not available 03/09/2024 General Stress Level? Moderate [email or web address] Information not available 03/09/2024 Live Alone Of With Others? With Others [email or web address] Information not available 03/09/2024 Do You Have A Medical Power Of Gambling Supervisor? No [email or web address] Information not available 03/09/2024 What Was The Date Of Your Most Recent Tobacco Screening? 03/09/2024 [email or web address] Information not available 03/09/2024 How Many Children Do You Have? 3 [email or web address] Information not available 03/09/2024 What Is Your Current Pack Years? 10packyears [email or web address] Information not available 03/09/2024 Have You Ever Been Counseled For Unhealthy Alcohol Use? No [email or web address] Information not available 03/09/2024 Do You Have Any Pets? Yes [email or web address] Information not available 03/09/2024 What Is Your Relationship Status? MIGRATION.0301 [id number] Information not available 09/17/2022 Do You Use Your Seat Belt Or Car Seat Routinely? Yes MIGRATION.0301 [id number] Information not available 09/17/2022 Are You Sexually Active? No [email or web address] Information not available 03/09/2024 Do You Have Smoke And Carbon Monoxide Detectors In Your Home? Yes MIGRATION.0301 [id number] Information not available 09/17/2022 At What Age Did You Start Smoking Tobacco? 38 [email or web address] Information not available 03/09/2024 Are You Passively Exposed To Smoke? No [email or web address] Information not available 03/09/2024 Are There Any Smokers In Your House? No [email or web address] Information not available 03/09/2024 How Much Tobacco Do You Smoke? 1 PPW MIGRATION.0301 193851 Information not available 09/17/2022 What Types Of Sporting Activities Do You Participate In? None [email or web address] Information not available 03/09/2024 Do You Use Sunscreen Routinely? No [email or web address] Information not available 03/09/2024 Has Tobacco Cessation Counseling Been Provided? No [email or web address] Information not available 03/09/2024 How Many Years Have You Smoked Tobacco? 2 [email or web address] Information not available 03/09/2024 Have You Recently Traveled Abroad? No [email or web address] Information not available 03/09/2024 Do You Have Difficulty Walking Or Climbing Stairs? Yes Hip Pain, Left Side [email or web address] Information not available 03/09/2024 Do You Have Any Dietary Restrictions? No [email or web address] Information not available 03/09/2024 How Many Days In The Past Year Have You Consumed 4 Or More Drinks? 3 [email or web address] Information not available 03/09/2024 Sex: Unknown Functional Status Question Answer Note LastModified by Organizat ion Details LastModified Time Do you use any illicit or recreational drugs? No [email or web address] Information not available 03/09/2024 Do you or have you ever used any other forms of tobacco or nicotine? No [email or web address] Information not available 03/09/2024 What is your level of alcohol consumption? Occasional MIGRATION.040754 5314 Information not available 09/17/2022 Are you currently employed? No [email or web address] Information not available 03/09/2024 Do you have transportation difficulties? No MIGRATION.694322 4802 Information not available 09/17/2022 Are you able to walk? YESASSIST [email or web address] Information not available 03/09/2024 Do you have difficulty doing errands alone? No MIGRATION.075253 3899 Information not available 09/17/2022 Are you able to care for yourself? Yes MIGRATION.082381 3780 Information not available 09/17/2022 What is your occupation? retired [email or web address] Information not available 03/09/2024 Do you have difficulty dressing or bathing? No MIGRATION.093979 7825 Information not available 09/17/2022 Do you or have you ever used e-cigarettes or vape? Never used electronic cigarettes MIGRATION.545169 7295 Information not available 09/17/2022 What is your exercise level? None [email or web address] Information not available 03/09/2024 Mental Status Question Answer Note LastModified by Organizat ion Details LastModified Time Do you feel stressed (tense, restless, nervous, or anxious, or unable to sleep at night)? [id number] MIGRATION.[id number] 26 Information not available 09/17/2022 Do you have difficulty concentrating, remembering or making decisions? No MIGRATION.76019695 26 Information not available 09/17/2022 Family History Relationship Description Onset Age of this Age Resolved Age Notes LastModified by Organization Details LastModified Time Mother Heart disease MIGRATION.682 [id number] Not available 09/17/2022 03:14:39 Mother Hypertensive disorder MIGRATION.474 [id number] Not available 09/17/2022 03:14:39 Mother Malignant neoplastic disease MIGRATION.904 [id number] Not available 09/17/2022 03:14:39 Father Heart disease MIGRATION.251 [id number] Not available 09/17/2022 03:14:39 Father Hypertensive disorder MIGRATION.137 [id number] Not available 09/17/2022 03:14:39 Father Malignant neoplastic disease MIGRATION.613 [id number] Not available 09/17/2022 03:14:39 Sister Hypertensive disorder MIGRATION.930 [id number] Not available 09/17/2022 03:14:39 Brother Hypertensive disorder MIGRATION.174 [id number] Not available 09/17/2022 03:14:39 Medical History No medical history recorded. Gynecological History Statement/Question Response Date of Last Mammogram 01/18/2020 Date of Last Colonoscopy 07/18/2021 Date of Last Mammogram 01/28/2022 Most Recent Bone Density 07/08/2020 Obstetrics History GPAL:G 0 P 0 0 0 0 Immunizations Vaccine Type Date Status Note Provider Nam e and Address Organization Details Recorded Time Tdap 5 completed JENNY Hodge [address] [facility], [facility] [address], [place], [address], [facility] [employer] 11/09/2024 12:28:03 Influenza, high-dose, quadrivalent, PF 2 completed Not Available [facility] 09/17/2022 03:31:26 Influenza, high-dose, quadrivalent, PF 1 completed Not Available [facility] 09/17/2022 03:31:26 COVID-19, mRNA, LNP-S, PF, 100 mcg/0.5mL dose or 50 mcg/0.25mL dose 1 completed Not Available [facility] 09/17/2022 03:31:26 COVID-19, mRNA, LNP-S, PF, 100 mcg/0.5mL dose or 50 mcg/0.25mL dose 1 completed Not Available [facility] 09/17/2022 03:31:26 Influenza, high-dose, trivalent, PF 0 completed Not Available [facility] 09/17/2022 03:31:26 Influenza, split virus, quadrivalent, preservative 9 completed Not Available [facility] 09/17/2022 03:31:26 Pneumococcal conjugate PCV 13 9 completed Not Available [facility] 09/17/2022 03:31:26 influenza, unspecified formulation 8 completed Not Available [facility] 09/17/2022 03:31:26 pneumococcal polysaccharide PPV23 0 completed Not Available [facility] 09/17/2022 03:31:26 Past Encounters Encounter ID Performer Location Encounter Start Date Encounter Closed Date Diagnosis/Indication Diagnosis SNOMED-CT Code Diagnosis ICD10 Code Diagnosis Note [id number] Jose Francisco Cortes MD [facility] [address] [facility] [place] [address] 10/22/2020 00:00:00 10/22/2020 12:52:38 [id number] Jose Francisco Cortes MD [facility] [address] [place] [address] 02/25/2021 00:00:00 02/25/2021 10:33:04 [id number] Jose Francisco Cortes MD [facility] [address] [place] [address] 06/24/2021 00:00:00 06/24/2021 10:41:29 [id number] MD ALEXANDRA Talbert[facility] [address] [facility] [place] [address] 10/23/2021 00:00:00 10/23/2021 10:44:04 [id number] MD ALEXANDRA Talbert[facility] [address] [facility] [place] [address] 11/18/2021 00:00:00 11/18/2021 13:04:26 [id number] MD ALEXANDRA Talbert[facility] [address] [facility] [facility] [place] [address] 12/06/2021 00:00:00 12/06/2021 15:20:52 [id number] MD ALEXANDRA Talbert[facility] [address] [facility] [place] [address] 02/06/2022 00:00:00 02/06/2022 16:07:24 [id number] MD ALEXANDRA Talbert[facility] [address] [facility] [facility] [place] [address] 06/03/2022 00:00:00 06/03/2022 17:34:20 [id number] MD ALEXANDRA Talbert[facility] [address] [facility] [place] [address] 06/25/2022 00:00:00 06/25/2022 12:35:21 [id number] Jose Francisco Cortes MD [facility] Internal [facility] [address] [facility] [place] [address] 07/09/2022 00:00:00 07/09/2022 11:19:08 [id number] Jose Francisco Cortes MD [facility] [address] [facility] [place] [address] 10/10/2022 09:33:44 10/10/2022 10:15:29 Essential hypertension 06127856 I10 under control Gastroesop hageal reflux disease 948858626 K21.9 stable Anxiety 74548761 F41.9 meds help Chronic back pain 276601 002 G89.29 seeing pain management Osteoarthr itis of knee 785904319 M17.9 otc Osteopenia 405644572 M85 .80 on meds Depressive disorder 3548 9007 F32.A meds help Adult heal th examination 609288029 Z00.00 mammogram 01/2022 done by gynedmiguel aa 07/08 ( no report ) at [facility] 09/09, polyp, next in 3 yrs ( 2023 )prevnar 13 in 04/07pneumo vax 23 03/20/2020fl u vacc- 04/2022 -COVID- 09/17/2020 , 10/15/2020 Anemia 986793391 D64.9 mild Incontinence of feces 72 785[address]15[address] Urbina [id number] Jose Francisco Cortes MD [facility] [address] [facility] [place] [address] 02/06/2023 09:52:26 02/06/2023 11:15:51 Essential hypertension 48439769 I10 under control Gastroesop hageal reflux disease 427065662 K21.9 stable Anxiety 67468466 F41.9 under control Chronic back pain 319110 002 G89.29 seeing pain management , Osteoarthr itis of knee 114630488 M17.9 otc Osteopenia 505357812 M85 .80 on meds Depressive disorder 3548 9007 F32.A meds help Adult heal th examination 560994137 Z00.00 Mammogram 01/2022 [facility], polyp, next in 3 yrs ( 2023 )Prevnar 13 in 04/07Pneuri vax 23 03/20/2020Fl u vacc- OV ID- 09/17/2020 , 10/15/2020 Anemia 331981917 D64.9 mild Incontinence of feces [address] Urbina Screening for disorder 024700030 Z13.9 [id number] Jose Francisco Cortes MD [facility] [address] [facility] [place] [address] 06/19/2023 09:05:42 06/22/2023 09:46:14 Essential hypertension 37127744 I10 under control Gastroesop hageal reflux disease 734889976 K21.9 stable Anxiety 61161691 F41.9 under control Chronic back pain 717673 002 G89.29 not seeing pain management , Osteoarthr itis of knee 780244289 M17.9 otc Osteopenia 322687039 M85 .80 on meds Depressive disorder 3548 9007 F32.A meds help Anemia 709320017 D64.9 mild Incontinence of feces [address] Urbina, GETTING THERAPY and getting better Adult heal th examination 490994191 Z00.00 Mammogram 01/2022 done by gyneDexa 07/08 ( no report ) at [facility] 09/09, polyp, next in 3 yrs ( 2023 )Prevnar 13 in 04/07Pneuri vax 23 03/20/2020[facility]- 09/17/2020 , 10/15/2020 Urethral stricture 42504 002 N35.92 gets dilation regularly, Dr MORRIS Urinary symptoms 2648754 08 R39.9 urine dipstick is positive Long-term drug therapy 447638048 Z79.704 [id number] Carline Adams NP [facility] [address] [facility] [place] [address] 11/13/2023 10:50:01 11/13/2023 11:40:24 Depressive disorder 83341156 F32.A Essential hypertension 96812899 I10 Gastroesop hageal reflux disease 854676296 K21.9 Osteopenia 842725661 M85 .80 Upper resp iratory infection 50718476 J06.9 Chronic back pain 239840 002 G89.29 Acid reflux 216099984 K2 1.9 [id number] Jose Francisco Cortes MD [facility] [address] [place] [address] 03/09/2024 10:15:00 03/09/2024 11:16:55 Essential hypertension 53699197 I10 under control Gastroesop hageal reflux disease 809100115 K21.9 stable Anxiety 58180716 F41.9 under control Chronic back pain 122562 002 G89.29 off and on, seeing pain management Osteoarthr itis of knee 235769281 M17.9 otc Osteopenia 194502686 M85 .80 on meds Depressive disorder 3548 9007 F32.A meds help Anemia 474582743 D64.9 improved Incontinence of feces 72 989159 R15.9 being worked up at [facility] Adult heal th examination 659020595 Z00.00 Mammogram 03/2023 done by [facility] 07/08 ( no report ) [facility] 09/09, polyp, DUE in Aug 2024 - per ptPrevnar 13 in 04/07Pneumo vax 23 03/20/2020[facility]- 09/17/2020 , 10/15/2020 Urethral stricture 67918 002 N35.92 gets dilation regularly, Dr MORRIS Screening for disorder 884053641 Z13.9 [id number] Jose Francisco Cortes MD [facility] [address] [facility] [place] [address] 07/06/2024 11:01:22 07/06/2024 11:47:20 Essential hypertension 61332288 I10 under control Gastroesop hageal reflux disease 855689815 K21.9 stable Anxiety 60380385 F41.9 under control Chronic back pain 319480 002 G89.29 off and on, seeing pain management Osteoarthr itis of knee 544643630 M17.9 otc Osteopenia 145673438 M85 .80 on meds FROM [facility] Depressive disorder 3548 9007 F32.A meds help Anemia 593336773 D64.9 improved Incontinence of feces 72 551987 R15.9 seen GI at [facility] Adult heal th examination 758896189 Z00.00 Mammogram 03/2023 done by [facility] 07/08 ( no report ) [facility] 09/09, polyp, DUE in Aug 2024 - per ptPrevnar 13 in 04/07Pneumo vax 23 03/20/2020[facility]- 09/17/2020 , 10/15/2020 Urethral stricture 97777 002 N35.92 gets dilation regularly, Dr MORRIS Long-term drug therapy 584754905 Z79.899 on weekly meds from her [facility]ne [id number] Jose Francisco Cortes MD [facility] [address] [place] [address] 11/09/2024 08:59:22 11/09/2024 10:03:32 Anxiety 38957713 F41.9 under control, denies S/Hi Depressive disorder 3548 9007 F32.A Essential hypertension 99269127 I10 Continue taking medication sFollow low sodium diet and incorporat e exercise. In office 144, patient states she was a little upset on her way to visit due to memories of her mother. Discussed calling next day to follow up on BP reading at home. Gastroesop hageal reflux disease 841479117 K21.9 Insomnia 248479504 G47.0 0 Chronic back pain 950096 002 G89.29 Adult heal th examination 527895844 Z00.00 UTD on vaccines at this time. Impacted c erumen of bilateral ears 0795636095 317047 H61.23 Patient bilateral ears flushed and cleaned. Cerumen removed in office. Clear TM at this time. Health Concerns Section Related Observation LastModified by Organization Detai ls LastModified Time None Recorded Concern Status LastModified by Organization Details LastModified Time None Recorded Advance Directives Directive N: paperwork provided 024 Payers Encounter Date Sequence Insurance Name Policy Number Policy Bose Covered Member ID Bose Member ID Guarantor Name 06/19/2023 1 [employer] (MEDICARE REPLACEMENT /ADVANTAGE - PPO) [id number] 1 Keiko Noonan [id number] Keiko Noonan 11/13/2023 1 [employer] (MEDICARE REPLACEMENT /ADVANTAGE - PPO) [id number] 1 Keiko Noonan [id number] Keiko Noonan 03/09/2024 1 [employer] (MEDICARE REPLACEMENT /ADVANTAGE - PPO) [id number] 1 Keiko Noonan [id number] Keiko Noonan 07/06/2024 1 [employer] (MEDICARE REPLACEMENT /ADVANTAGE - PPO) [id number] 1 Keiko Noonan [id number] Keiko Noonan 11/09/2024 1 [employer] (MEDICARE REPLACEMENT /ADVANTAGE - PPO) [id number] 1 Keiko Noonan [id number] Keiko Noonan Notes Date Note Type Note Provider Name and Address Organization Details Recorded Time 06/19/2023 text/html Here today for routine f/u, compliant to medsPT IS FASTING Essential Hypertension- under controlMeds- amlodipine 10 mg qd, metoprolol ER 100 mg qdDepression/Anxiety /stress- symptoms are under control, no suicidal thoughts, sleeps Jack has health issuesMeds- Duloxetine 40 mg qdGERD- controlled with Omeprazole prnMeds- omeprazole 40 mg qd prnChronic back pain- was seeing pain management, MRI 03/2020 , s/p ablationMeds- gabapentin qhsSeasonal allergies- montelukast when season changes , advised to take zyrtecUreteral stricture requiring dilatation few x a year, seeing urology, currently no symptomsVit d def- on rx from gyneOsteoporosis- on alendronate, gets dexa through [facility]ne Anemia- mild, nl iron and b12, up to date on colonoscopy, will get labs Fecal incontinence- seeing GI and being worked up Jose Francisco Cortes MD [address] [facility], [place], [address], [place] [facility] [employer] 06/19/2023 12:43:33 11/13/2023 text/html Here for 4 month check, taking medications as prescribed,.she has some questions about sending her medication to the mail order. Carline Adams NP [address] [facility], [address], [place], [address], [facility] 11/13/2023 13:41:10 03/09/2024 text/html Here today for routine f/u, compliant to medsPT IS NOT FASTING Left Hip pain- needs surgery- getting PT , had steroid shotSeeing Dr. Flores Essential Hypertension- under controlMeds- Amlodipine 10 mg qd, Metoprolol ER 100 mg qdDepression/Anxiety /stress- symptoms are under control, no suicidal thoughts, sleeps Jack has health issuesMeds- Duloxetine 40 mg qdGERD- controlled with Omeprazole prnMeds- Omeprazole 40 mg qd prnChronic back pain- seeing pain management, MRI 03/2020 , s/p ablationMeds- Gabapentin qhsSeasonal allergies- montelukast when season changes , advised to take ZyrtecUreteral stricture requiring dilatation few x a year, seeing urology, currently no symptoms Dr Morris/NPVit d def- on rx from gyneOsteoporosis- on alendronate, gets dexa through gyne Anemia- mild and improved, nl iron and b12, up to date on colonoscopy, Faecal incontinence- seeing GI and being worked up Jose Francisco Cortes MD [address] [facility], [facility] [address], [place], [address], [employer] 03/09/2024 16:39:39 07/06/2024 text/html pt is here today for routine 4 month f/uPT IS FASTING ([employer], medicare) Left Hip pain- needs surgery- had steroid shot, had PTSeeing Dr. Flores Essential Hypertension- under controlMeds- Amlodipine 10 mg qd, Metoprolol ER 100 mg qdDepression/Anxiety /stress- symptoms are under control, no suicidal thoughts, sleeps Jack has health issuesMeds- Duloxetine 40 mg qdGERD- controlled with Omeprazole prnMeds- Omeprazole 40 mg qd prnChronic back pain- seeing pain management, MRI 03/2020 , s/p ablationMeds- Gabapentin qhsSeasonal allergies- montelukast when season changes , advised to take ZyrtecUreteral stricture requiring dilatation few x a year, seeing urology, currently no symptoms Dr Morris/NPVit d def- on rx from gyneOsteoporosis- on alendronate, gets dexa through gyne Anemia- mild and improved, nl iron and b12, up to date on colonoscopy, Faecal incontinence- seeing GI and being worked up, doing exercises H/o cervical cancer in 1979, had surgery and gets pap from gyne regularly Jose Francisco Cortes MD [address] [facility], [facility] [address], [place], [address], [place] [facility] 07/06/2024 11:43:13 11/09/2024 text/html Patient is 69y/o female who is here for 4 month follow up. She reports no concerns at this time and denies injury, illness, fever, or pain. Left Hip pain- needs surgery- had steroid shot, had PTSeeing Dr. Flores.... Essential Hypertension- under controlMeds- Amlodipine 10 mg qd, Metoprolol ER 100 mg qd: to call next day for BP.no does not check at home. Non-smokerDepression /Anxiety/stress- symptoms are under control, no suicidal thoughts, sleeps Jack has health issuesMeds- Duloxetine 40 mg qdGERD- controlled with Omeprazole prnMeds- Omeprazole 40 mg qd prnChronic back pain- seeing pain management, MRI 03/2020 , s/p ablation no back surgeryMeds- Gabapentin qhs..Seasonal allergies- montelukast when season changes , advised to take Zyrtec- no longer takingUreteral stricture requiring dilatation few x a year, seeing urology, currently no symptoms Dr Morris/PROTOZOOLOGY TEACHER, dilation every three monthsVit d def- on rx from gyneOsteoporosis- on alendronate, gets dexa through gyne Anemia- mild and improved, nl iron and b12, up to date on colonoscopy, Faecal incontinence- seeing GI and being worked up, doing exercises, has improved H/o cervical cancer in 1979, had surgery and gets pap from gyne regularly Right ear: hard to hear, fullness mammogram- 09/16/2024olonoscopy - 11/16/2024WWE-utdDEXA - November 2024 scheduledFlu- updCovid- utdTdap- given 11/09[facility] at [facility] JENNY Hodge [address] [facility], [facility] [address], [place], [address], [facility] 11/09/2024 12:32:23 OBGyn Episode No OBEpisode recorded.
== END 2024-12-14 08:05 | disposition home or self-care (01) ==
LOC: ANHIMG 08:06
PROVIDERS: PCP Internal Medicine; Visit Provider Obstetrics & Gynecology Gynecology
DX: M85.89 Other specified disorders of bone density and structure, multiple sites (principal); Z78.0 Asymptomatic menopausal state
CPT/HCPCS: 77080